=== PATIENT | male | born 1940 | race Caucasian/White ===

== ENCOUNTER → 2016-10-03 | Outpatient (CLI) | payer BC | END | disposition home or self-care (01) | LOC: RAD 07:50 | DX: R05 Cough (principal); R07.9 Chest pain, unspecified | CPT/HCPCS: 71020 ==

== ENCOUNTER → 2016-11-05 | Outpatient (CLI) | payer BC | END | disposition home or self-care (01) | LOC: US 06:51 | PROVIDERS: ATTEND Family Medicine | DX: N28.1 Cyst of kidney, acquired (principal); N40.0 Benign prostatic hyperplasia without lower urinary tract symptoms | CPT/HCPCS: 76770 ==

== ENCOUNTER → 2016-11-10 | Outpatient (CLI) | payer BC | END | disposition home or self-care (01) | LOC: LAB 16:29 | PROVIDERS: ATTEND Urology | DX: S37.009A Unspecified injury of unspecified kidney, initial encounter (principal); X58.XXXA Exposure to other specified factors, initial encounter; Y93.89 Activity, other specified; Y92.89 Other specified places as the place of occurrence of the external cause; Y99.8 Other external cause status | CPT/HCPCS: 36415; 82565; 84520 ==

== ENCOUNTER → 2016-11-12 | Outpatient (CLI) | payer BC ==
[~2016-11-12] MED LIST: ASPI-1159 PO; ATOR20TA65 PO; FINA5TAB11 PO; FURO40TA5 PO; IOHEXOL-300 100 ML BOTTLE ONE; LOSA25TA12 PO; LOSA50TA20 PO; OMEP40CA34 PO; SODIUM CHLORIDE 0.9% 10ML VIAL ONE; TAMS0.4C31 PO
== END | disposition home or self-care (01) ==
LOC: CT 06:48
PROVIDERS: ATTEND Urology
DX: S37.002A Unspecified injury of left kidney, initial encounter (principal); K76.89 Other specified diseases of liver; N28.1 Cyst of kidney, acquired; K57.90 Diverticulosis of intestine, part unspecified, without perforation or abscess without bleeding; X58.XXXA Exposure to other specified factors, initial encounter; Y93.89 Activity, other specified; Y92.89 Other specified places as the place of occurrence of the external cause; Y99.8 Other external cause status
CPT/HCPCS: 74178; A4216; Q9967

== ENCOUNTER → 2017-01-14 | Outpatient (CLI) | payer BC ==
[~2017-01-14] MED LIST changes: -IOHEXOL-300 100 ML BOTTLE ONE; -SODIUM CHLORIDE 0.9% 10ML VIAL ONE
== END | disposition home or self-care (01) ==
LOC: US 07:26
PROVIDERS: ATTEND Family Medicine
DX: R16.0 Hepatomegaly, not elsewhere classified (principal); N28.1 Cyst of kidney, acquired
CPT/HCPCS: 76700

== ENCOUNTER 2017-02-25 05:33 | Day surgery (SDC) | payer BC, MEDICARE ==
[~2017-02-25] VITALS: Ht 167.6 cm; Wt 82.6 kg
[2017-02-25] MEDS ORDERED: PHENYLEPHRINE HCL 10% OPHTH DROPS 5ML LEFTEYE SCH (06:05)
[2017-02-25] MEDS ORDERED: TROPICAMIDE 1% OPHTH DROPS 15ML LEFTEYE SCH (06:05)
[2017-02-25] MEDS: CYCLOPENTOLATE HCL 1% OPHTH DROPS 2ML LEFTEYE SCH ×2 (06:10→08:39)
[2017-02-25] MEDS ORDERED: LACTATED RINGERS 1,000 ML IV SCH (06:35)
[2017-02-25] MEDS ORDERED: BALANCED SALT IRRIG SOLN COMB1 500ML OP ONE (06:45)
[2017-02-25] MEDS ORDERED: MIDAZOLAM HCL 2 MG/2 ML VIAL ONE ×2 (07:35→08:10)
[2017-02-25] MEDS ORDERED: FENTANYL CITRATE/PF 50MCG/ML 2ML VIAL ONE (07:36)
[2017-02-25] MEDS ORDERED: HYALURONATE SODIUM 14 MG/ML 0.85ML SYRINGE IO ONE (08:05)
[2017-02-25] MEDS ORDERED: PROPOFOL 200MG/20ML VIAL IV ONE (08:20)
[2017-02-25] MEDS ORDERED: ONDANSETRON HCL 4MG/2ML VIAL IV PRN (08:45)
[2017-02-25] MEDS: FENTANYL CITRATE/PF 50MCG/ML 2ML VIAL IV PRN ×2 (09:07→09:23)
[2017-02-25 09:23] VITALS: BP 109/68
[2017-02-25] MEDS ORDERED: LOSA50TA20 PO (09:29)
[2017-02-25] MEDS ORDERED: FURO40TA5 PO (09:29)
[2017-02-25] MEDS ORDERED: LOSA25TA12 PO (09:29)
[2017-02-25] MEDS ORDERED: TAMS0.4C31 PO (09:29)
[2017-02-25] MEDS ORDERED: OMEP40CA34 PO (09:29)
[2017-02-25] MEDS ORDERED: ASPI-1159 PO (09:29)
[2017-02-25] MEDS ORDERED: ATOR20TA65 PO (09:29)
[2017-02-25] MEDS ORDERED: FINA5TAB11 PO (09:29)
[2017-02-25] MEDS ORDERED: TETRACAINE 0.5% OPHTH DROPS 4ML ONE (11:50)
[2017-02-25] MEDS ORDERED: PREDNISOLONE ACETATE 1% OPHTH DROPS 1ML ONE (11:50)
[2017-02-25] MEDS ORDERED: LIDOCAINE HCL/PF 2% 20 MG/ML 10ML VIAL ONE (11:50)
[2017-02-25] MEDS ORDERED: ACETYLCHOLINE CHLORIDE INTRAOCULAR SOLUTION 1:100 ELECTROLYTE DILUENT IO ONE (11:50)
[2017-02-25] MEDS ORDERED: BALANCED SALT IRRIG SOLN 15ML ONE (11:50)
[2017-02-25] MEDS ORDERED: CIPROFLOXACIN 0.3% OPHTH SOLN 2.5ML ONE (11:50)
[2017-02-25] MEDS ORDERED: NEO/POLYMYX B SULF/DEXAMETH OPHTH OINT 3.5GM ONE (11:50)
== END 2017-02-25 10:20 ==
LOC: OR 05:33
PROVIDERS: ATTEND Ophthalmology
DX: H25.89 Other age-related cataract (principal); I10 Essential (primary) hypertension; K21.9 Gastro-esophageal reflux disease without esophagitis; N40.0 Benign prostatic hyperplasia without lower urinary tract symptoms; B19.20 Unspecified viral hepatitis C without hepatic coma; E78.00 Pure hypercholesterolemia, unspecified; Z98.890 Other specified postprocedural states; Z79.899 Other long term (current) drug therapy
CPT/HCPCS: 66984; J2250; J3010; J3490; J7120; V2632; J2704

== ENCOUNTER → 2017-03-23 | Outpatient (CLI) | payer BC | END | disposition home or self-care (01) | LOC: MRI 07:05 | PROVIDERS: ATTEND Psychiatry & Neurology Neurology | DX: I67.9 Cerebrovascular disease, unspecified (principal) | CPT/HCPCS: 70544 ==

== ENCOUNTER → 2017-04-19 | Outpatient (CLI) | payer BC ==
[~2017-04-19] MED LIST changes: +PHEN30CA3 PO
[2017-04-19 12:19] LABS: BASOPHILS % 0.7 % (0.0-2.0); EOSINOPHILS % 2.7 % (0.0-5.0); HEMATOCRIT. 40.5 % (42.0-52.0); HEMOGLOBIN. 13.6 g/dL (14.0-18.0); MEAN CORPUSCULAR HEMOGLOBIN 29.5 pg (28.0-32.0); MEAN CORPUSCULAR VOLUME 87.7 fL (80.0-94.0); MEAN PLATELET VOLUME 7.9 fl (7.4-10.4); MONOCYTES % 12.1 % (2.0-8.0); NEUTROPHILS % 39.5 % (40.0-76.0); PLATELET 262 x1000/uL (130-400); RED BLOOD CELL COUNT 4.62 mill/uL (4.7-6.1); RED CELL DISTRIBUTION WIDTH 12.8 % (11.6-14.6)
[2017-04-19 12:43] LABS: CHLORIDE 107 mEq/L (98-107)
== END | disposition home or self-care (01) ==
LOC: LAB 11:42
PROVIDERS: ATTEND Internal Medicine Gastroenterology
DX: N28.1 Cyst of kidney, acquired (principal); R16.0 Hepatomegaly, not elsewhere classified
CPT/HCPCS: 36415; 80053; 82105; 85025

== ENCOUNTER → 2017-04-26 | Outpatient (CLI) | payer BC ==
[~2017-04-26] MED LIST changes: -PHEN30CA3 PO
== END | disposition home or self-care (01) ==
LOC: US 07:14
PROVIDERS: ATTEND Internal Medicine Gastroenterology
DX: N28.1 Cyst of kidney, acquired (principal); R16.0 Hepatomegaly, not elsewhere classified
CPT/HCPCS: 76700

== ENCOUNTER → 2017-05-10 | Outpatient (CLI) | payer BC | END | disposition home or self-care (01) | LOC: CARD 07:13 | PROVIDERS: ATTEND Psychiatry & Neurology Neurology | DX: I67.9 Cerebrovascular disease, unspecified (principal) | CPT/HCPCS: 93306 ==

== ENCOUNTER → 2017-05-27 | Day surgery (SDC) | payer BC ==
[~2017-05-27] VITALS: Ht 167.6 cm; Wt 74.8 kg
[~2017-05-27] MED LIST changes: +ACETYLCHOLINE CHLORIDE INTRAOCULAR SOLUTION 1:100 ELECTROLYTE DILUENT IO ONE; +BALANCED SALT IRRIG SOLN 15ML ONE; +BALANCED SALT IRRIG SOLN COMB2 500ML OP ONE; +BUPIVACAINE HCL/PF 0.75% (7.5MG/ML) 10ML ONE; +CIPROFLOXACIN 0.3% OPHTH SOLN 2.5ML ONE; +CYCLOPENTOLATE HCL 1% OPHTH DROPS 2ML LEFTEYE ONE; +CYCLOPENTOLATE HCL 1% OPHTH DROPS 2ML ONE; +HYALURONATE SODIUM 14 MG/ML 0.85ML SYRINGE IO ONE; +LIDOCAINE HCL 2%/EPINEPHRINE 1:100,000 20 ML VIAL INFIL ONE; +LIDOCAINE HCL/PF 2% 20 MG/ML 10ML VIAL ONE; +MORPHINE SULFATE 2 MG/ML CPJ (NOT FOR IM USE) IV PRN; +NEO/POLYMYX B SULF/DEXAMETH OPHTH OINT 3.5GM ONE; +PHEN30CA3 PO; +PHENYLEPHRINE HCL 10% OPHTH DROPS 5ML LEFTEYE ONE; +PREDNISOLONE ACETATE 1% OPHTH DROPS 1ML ONE; +TETRACAINE 0.5% OPHTH DROPS 4ML ONE; +TROPICAMIDE 1% OPHTH DROPS 15ML LEFTEYE ONE; +TROPICAMIDE 1% OPHTH DROPS 15ML ONE
[2017-05-27 11:34] LABS: BASOPHILS % 0.6 % (0.0-2.0); EOSINOPHILS % 2.4 % (0.0-5.0); HEMATOCRIT. 37.7 % (42.0-52.0); HEMOGLOBIN. 12.6 g/dL (14.0-18.0); LYMPHOCYTES % 42.9 % (20.0-50.0); MEAN CORPUSCULAR VOLUME 86.9 fL (80.0-94.0); MEAN PLATELET VOLUME 7.5 fl (7.4-10.4); MONOCYTES % 9.5 % (2.0-8.0); NEUTROPHILS % 44.6 % (40.0-76.0); PLATELET 262 x1000/uL (130-400); RED BLOOD CELL COUNT 4.34 mill/uL (4.7-6.1); RED CELL DISTRIBUTION WIDTH 13.2 % (11.6-14.6)
[2017-05-27 11:45] LABS: CARBON DIOXIDE 23 mEq/L (21-32); CHLORIDE 110 mEq/L (98-107)
[2017-05-27] MEDS: LACTATED RINGERS 1,000 ML IV SCH ×2 (12:00→13:56)
== END | disposition home or self-care (01) ==
LOC: OR 10:24
PROVIDERS: ATTEND Ophthalmology
DX: H52.31 Anisometropia (principal); B19.20 Unspecified viral hepatitis C without hepatic coma; K21.9 Gastro-esophageal reflux disease without esophagitis; Z87.891 Personal history of nicotine dependence; E78.00 Pure hypercholesterolemia, unspecified; N40.0 Benign prostatic hyperplasia without lower urinary tract symptoms; Z79.899 Other long term (current) drug therapy; Z79.82 Long term (current) use of aspirin; Z98.890 Other specified postprocedural states
CPT/HCPCS: 36415; 66986; 67010; 80048; 85025; 93005; J3490; J7120; V2630

== ENCOUNTER → 2017-06-13 | Outpatient (CLI) | payer BC ==
[~2017-06-13] MED LIST changes: -ACETYLCHOLINE CHLORIDE INTRAOCULAR SOLUTION 1:100 ELECTROLYTE DILUENT IO ONE; -BALANCED SALT IRRIG SOLN 15ML ONE; -BALANCED SALT IRRIG SOLN COMB2 500ML OP ONE; -BUPIVACAINE HCL/PF 0.75% (7.5MG/ML) 10ML ONE; -CIPROFLOXACIN 0.3% OPHTH SOLN 2.5ML ONE; +CLOP75TA33 PO; -CYCLOPENTOLATE HCL 1% OPHTH DROPS 2ML LEFTEYE ONE; -CYCLOPENTOLATE HCL 1% OPHTH DROPS 2ML ONE; -HYALURONATE SODIUM 14 MG/ML 0.85ML SYRINGE IO ONE; +HYDR-4009 PO; -LIDOCAINE HCL 2%/EPINEPHRINE 1:100,000 20 ML VIAL INFIL ONE; -LIDOCAINE HCL/PF 2% 20 MG/ML 10ML VIAL ONE; +METH-612 PO; -MORPHINE SULFATE 2 MG/ML CPJ (NOT FOR IM USE) IV PRN; -NEO/POLYMYX B SULF/DEXAMETH OPHTH OINT 3.5GM ONE; +NITR0.4T49 SL; +PHEN15CA MT; -PHENYLEPHRINE HCL 10% OPHTH DROPS 5ML LEFTEYE ONE; -PREDNISOLONE ACETATE 1% OPHTH DROPS 1ML ONE; -TETRACAINE 0.5% OPHTH DROPS 4ML ONE; -TROPICAMIDE 1% OPHTH DROPS 15ML LEFTEYE ONE; -TROPICAMIDE 1% OPHTH DROPS 15ML ONE
== END | disposition home or self-care (01) ==
LOC: LAB 09:11
PROVIDERS: ATTEND Internal Medicine Gastroenterology
DX: K76.89 Other specified diseases of liver (principal)
CPT/HCPCS: 36415; 82565; 84520

== ENCOUNTER → 2017-06-15 | Outpatient (CLI) | payer BC ==
[~2017-06-15] MED LIST changes: +BARIUM SULFATE 450ML ORAL SUSP ONE; -CLOP75TA33 PO; -HYDR-4009 PO; +IOHEXOL-300 100 ML BOTTLE ONE; -METH-612 PO; -NITR0.4T49 SL; -PHEN15CA MT
== END | disposition home or self-care (01) ==
LOC: CT 11:43
PROVIDERS: ATTEND Internal Medicine Gastroenterology
DX: K76.9 Liver disease, unspecified (principal)
CPT/HCPCS: 74177; Q9967

== ENCOUNTER → 2017-08-26 | Outpatient (CLI) | payer BC ==
[~2017-08-26] MED LIST changes: -BARIUM SULFATE 450ML ORAL SUSP ONE; -IOHEXOL-300 100 ML BOTTLE ONE
[2017-08-26 08:02] LABS: BASOPHILS % 0.6 % (0.0-2.0); EOSINOPHILS % 1.8 % (0.0-5.0); HEMATOCRIT. 42.2 % (42.0-52.0); HEMOGLOBIN. 14.1 g/dL (14.0-18.0); LYMPHOCYTES % 38.2 % (20.0-50.0); MEAN CORPUSCULAR HEMOGLOBIN 29.5 pg (28.0-32.0); MEAN CORPUSCULAR VOLUME 88.3 fL (80.0-94.0); MEAN PLATELET VOLUME 7.4 fl (7.4-10.4); MONOCYTES % 12.4 % (2.0-8.0); PLATELET 278 x1000/uL (130-400); RED BLOOD CELL COUNT 4.78 mill/uL (4.7-6.1); RED CELL DISTRIBUTION WIDTH 13.2 % (11.6-14.6)
[2017-08-26 08:23] LABS: CHLORIDE 109 mEq/L (98-107)
[2017-08-27 13:08] LABS: ALPHA FETOPROTEIN TUMOR MARKER 4.5 ng/mL (0.0-8.3)
== END | disposition home or self-care (01) ==
LOC: LAB 07:26
PROVIDERS: ATTEND Internal Medicine Gastroenterology
DX: K76.9 Liver disease, unspecified (principal); I10 Essential (primary) hypertension; E78.00 Pure hypercholesterolemia, unspecified; K21.9 Gastro-esophageal reflux disease without esophagitis; R79.89 Other specified abnormal findings of blood chemistry; Z79.899 Other long term (current) drug therapy; Z79.82 Long term (current) use of aspirin; Z87.891 Personal history of nicotine dependence
CPT/HCPCS: 36415; 80053; 82105; 82378; 85025; 86301

== ENCOUNTER 2018-01-31 06:52 | Day surgery (SDC) | payer BC ==
[~2018-01-31] VITALS: Ht 167.6 cm; Wt 72.6 kg
[2018-01-31] MEDS ORDERED: PHENYLEPHRINE HCL 10% OPHTH DROPS 5ML RIGHTEYE SCH (08:40)
[2018-01-31] MEDS ORDERED: CYCLOPENTOLATE HCL 1% OPHTH DROPS 2ML RIGHTEYE SCH (08:40)
[2018-01-31] MEDS ORDERED: TROPICAMIDE 1% OPHTH DROPS 15ML RIGHTEYE SCH (08:40)
[2018-01-31] MEDS ORDERED: LACTATED RINGERS 1,000 ML IV SCH (09:00)
[2018-01-31] MEDS ORDERED: BALANCED SALT IRRIG SOLN COMB1 500ML OP ONE (10:00)
[2018-01-31] MEDS ORDERED: HYALURONATE SODIUM 14 MG/ML 0.85ML SYRINGE IO ONE (11:14)
[2018-01-31] MEDS ORDERED: BALANCED SALT IRRIG SOLN 15ML ONE (11:19)
[2018-01-31] MEDS ORDERED: PHENYLEPHRINE HCL 10% OPHTH DROPS 5ML ONE (11:19)
[2018-01-31] MEDS ORDERED: LIDOCAINE HCL/PF 2% 20 MG/ML 10ML VIAL ONE (11:19)
[2018-01-31] MEDS ORDERED: BUPIVACAINE HCL/PF 0.75% (7.5MG/ML) 10ML ONE (11:19)
[2018-01-31] MEDS ORDERED: NEO/POLYMYX B SULF/DEXAMETH OPHTH OINT 3.5GM ONE (11:19)
[2018-01-31] MEDS ORDERED: OFLOXACIN 0.3% OPHTH SOLN 5ML ONE (11:19)
[2018-01-31] MEDS ORDERED: CYCLOPENTOLATE HCL 1% OPHTH DROPS 2ML ONE (11:19)
[2018-01-31] MEDS ORDERED: PREDNISOLONE ACETATE 1% OPHTH DROPS 1ML ONE (11:19)
[2018-01-31] MEDS ORDERED: TETRACAINE 0.5% OPHTH DROPS 4ML ONE (11:19)
[2018-01-31] MEDS ORDERED: TROPICAMIDE 1% OPHTH DROPS 15ML ONE (11:19)
[2018-01-31] MEDS ORDERED: LIDOCAINE HCL 2%/EPINEPHRINE 1:100,000 20 ML VIAL INFIL ONE (11:19)
[2018-01-31] MEDS ORDERED: PROPOFOL 200MG/20ML VIAL IV ONE (12:40)
[2018-01-31] MEDS ORDERED: FENTANYL CITRATE/PF 50MCG/ML 2ML VIAL ONE (12:40)
[2018-01-31] MEDS ORDERED: MIDAZOLAM HCL 2 MG/2 ML VIAL ONE (12:40)
[2018-01-31] MEDS ORDERED: MEPERIDINE HCL/PF 25MG/ML CPJ IV PRN (12:45)
[2018-01-31] MEDS ORDERED: LABETALOL 5MG/ML SYR 20 MG/4 ML SYRINGE IV PRN (12:45)
[2018-01-31] MEDS ORDERED: HYDROMORPHONE HCL/PF 2MG/ML CPJ IV PRN (12:45)
[2018-01-31] MEDS ORDERED: ONDANSETRON HCL 4MG/2ML INJ IV PRN (12:45)
[2018-01-31] MEDS ORDERED: DEXAMETHASONE 4MG/ML 1ML VIAL ONE (12:54)
== END 2018-01-31 14:05 | disposition home or self-care (01) ==
LOC: OR 06:52
PROVIDERS: ATTEND Ophthalmology
DX: H25.011 Cortical age-related cataract, right eye (principal); N40.0 Benign prostatic hyperplasia without lower urinary tract symptoms; I10 Essential (primary) hypertension; E78.00 Pure hypercholesterolemia, unspecified; G89.29 Other chronic pain; B19.20 Unspecified viral hepatitis C without hepatic coma; K21.9 Gastro-esophageal reflux disease without esophagitis; Z98.890 Other specified postprocedural states; Z90.81 Acquired absence of spleen; Z79.899 Other long term (current) drug therapy; Z79.82 Long term (current) use of aspirin; Z87.891 Personal history of nicotine dependence
CPT/HCPCS: 66984; J1100; J2250; J2405; J3010; J3490; J7120; V2632; J2704

== ENCOUNTER → 2018-02-17 | Outpatient (CLI) | payer BC | END | disposition home or self-care (01) | LOC: RAD 07:43 | PROVIDERS: ATTEND Podiatrist Foot & Ankle Surgery | DX: M72.2 Plantar fascial fibromatosis (principal) | CPT/HCPCS: 73630 ==

== ENCOUNTER → 2018-03-22 | Outpatient (CLI) | payer BC ==
[2018-03-22 10:41] LABS: BASOPHILS % 0.5 % (0.0-2.0); HEMATOCRIT. 39.7 % (42.0-52.0); HEMOGLOBIN. 13.7 g/dL (14.0-18.0); LYMPHOCYTES % 29.3 % (20.0-50.0); MEAN CORPUSCULAR HEMOGLOBIN 30.7 pg (28.0-32.0); MEAN CORPUSCULAR VOLUME 88.9 fL (80.0-94.0); MEAN PLATELET VOLUME 7.5 fl (7.4-10.4); MONOCYTES % 10.1 % (2.0-8.0); NEUTROPHILS % 59.1 % (40.0-76.0); PLATELET 328 x1000/uL (130-400); RED BLOOD CELL COUNT 4.47 mill/uL (4.7-6.1); RED CELL DISTRIBUTION WIDTH 12.9 % (11.6-14.6)
[2018-03-22 12:25] LABS: CHLORIDE 106 mEq/L (98-107)
[2018-03-22 12:38] LABS: LDL CHOLESTEROL 76 mg/dL (5-100); T4 FREE 1.08 ng/dL (0.76-1.46)
[2018-03-22 12:39] LABS: HDL CHOLESTEROL 62 mg/dL (40-59)
== END | disposition home or self-care (01) ==
LOC: LAB 09:37
PROVIDERS: ATTEND Specialist
DX: I11.9 Hypertensive heart disease without heart failure (principal); R94.31 Abnormal electrocardiogram [ECG] [EKG]; I42.8 Other cardiomyopathies; I44.7 Left bundle-branch block, unspecified
CPT/HCPCS: 36415; 80061; 84439; 84443; 84481

== ENCOUNTER 2018-03-28 06:39 | Day surgery (SDC) | payer BC ==
[2018-03-28] MEDS ORDERED: LIDOCAINE HCL 1% 20ML VIAL (Pyxis) INJ ONE (07:38)
[2018-03-28] MEDS ORDERED: IODIXANOL 320MG/ML 100 ML BOTTLE IV ONE (07:38)
[2018-03-28] MEDS ORDERED: ASPIRIN/SOD BICARB/CITRIC ACID 324MG TAB EFF ONE (07:38)
[2018-03-28] MEDS ORDERED: MIDAZOLAM HCL 2 MG/2 ML VIAL ONE (08:14)
[2018-03-28] MEDS ORDERED: FENTANYL CITRATE/PF 50MCG/ML 2ML VIAL ONE (08:15)
[2018-03-28] MEDS ORDERED: IOHEXOL-300 100 ML BOTTLE ONE (08:58)
[2018-03-28] MEDS ORDERED: ATROPINE SULFATE 1MG/10ML SYR IV PRN (09:15)
[2018-03-28] MEDS ORDERED: ACETAMINOPHEN 325MG TABLET PO PRN (09:15)
[2018-03-28] MEDS ORDERED: ONDANSETRON HCL 4MG/2ML INJ IV PRN (09:15)
[2018-03-28] MEDS ORDERED: MORPHINE SULFATE 2 MG/ML CPJ (NOT FOR IM USE) IV PRN (09:15)
[2018-03-28] MEDS ORDERED: HEPARIN SODIUM 1,000 UNIT/1ML VIAL IV ONE (14:29)
[2018-03-28] MEDS ORDERED: NICARDIPINE 100MCG/ML 10ML VIAL (CATH LAB) IV ONE (15:25)
[2018-03-28] MEDS ORDERED: NITROGLYCERIN 50MCG/ML 10ML VIAL (CATH LAB) IV ONE (15:25)
== END 2018-03-28 14:05 | disposition home or self-care (01) ==
LOC: CCL 06:39
PROVIDERS: ATTEND Specialist
DX: I25.10 Atherosclerotic heart disease of native coronary artery without angina pectoris (principal); I11.9 Hypertensive heart disease without heart failure; I44.7 Left bundle-branch block, unspecified; N40.0 Benign prostatic hyperplasia without lower urinary tract symptoms; I42.9 Cardiomyopathy, unspecified; K21.9 Gastro-esophageal reflux disease without esophagitis; E78.00 Pure hypercholesterolemia, unspecified; Z79.899 Other long term (current) drug therapy; Z79.82 Long term (current) use of aspirin; Z87.891 Personal history of nicotine dependence; Z98.890 Other specified postprocedural states
CPT/HCPCS: 93458; 99152; 99153; C1769; C1887; J1644; J2250; J3010; J3490; Q9967; C1893; G0500

== ENCOUNTER 2018-04-21 06:55 | Inpatient (IN) | payer BC, MEDICARE ==
[~2018-04-21] VITALS: Ht 167.6 cm; Wt 76.7 kg
[2018-04-21] MEDS ORDERED: FENTANYL CITRATE/PF 50MCG/ML 2ML VIAL IV ONE ×2 (07:30→12:15)
[2018-04-21] MEDS ORDERED: ASPIRIN 81MG TABLET PO ONE (07:30)
[2018-04-21] MEDS ORDERED: ONDANSETRON HCL 4MG/2ML INJ IV ONE (07:30)
[2018-04-21 08:34] LABS: BASOPHILS % 0.6 % (0.0-2.0); EOSINOPHILS % 1.9 % (0.0-5.0); HEMATOCRIT. 38.1 % (42.0-52.0); HEMOGLOBIN. 12.8 g/dL (14.0-18.0); LYMPHOCYTES % 27.2 % (20.0-50.0); MEAN CORPUSCULAR VOLUME 89.6 fL (80.0-94.0); MEAN PLATELET VOLUME 7.7 fl (7.4-10.4); MONOCYTES % 10.9 % (2.0-8.0); NEUTROPHILS % 59.4 % (40.0-76.0); PLATELET 360 x1000/uL (130-400); RED BLOOD CELL COUNT 4.25 mill/uL (4.7-6.1); RED CELL DISTRIBUTION WIDTH 12.9 % (11.6-14.6)
[2018-04-21 08:41] LABS: CHLORIDE 104 mEq/L (98-107)
[2018-04-21 08:45] LABS: INR 1.1; PARTIAL THROMBOPLASTIN TIME 28.9 sec (23.4-31.0)
[2018-04-21] MEDS ORDERED: FUROSEMIDE 20MG/2ML VIAL IVP ONE (09:15)
[2018-04-21 09:24] LABS: CLARITY URINE CLEAR (CLEAR); COLOR URINE YELLOW (YELLOW); KETONES URINE NEGATIVE (NEGATIVE); LEUKOCYTE ESTERASE URINE NEGATIVE (NEGATIVE); NITRITE URINE NEGATIVE (NEGATIVE); OCCULT BLOOD URINE NEGATIVE (NEGATIVE); PROTEIN URINE NEGATIVE (NEGATIVE); SPECIFIC GRAVITY URINE 1.007 (1.005-1.030); UROBILINOGEN URINE 0.2 E.U./dL (0.2-1.0)
[2018-04-21] MEDS ORDERED: HYDR-4009 PO (11:45)
[2018-04-21] MEDS ORDERED: CLOP75TA33 PO (11:45)
[2018-04-21] MEDS ORDERED: METH-612 PO (11:45)
[2018-04-21] MEDS ORDERED: NITR0.4T49 SL (11:45)
[2018-04-21 12:00] VITALS: BP 149/85
[2018-04-21 13:00] VITALS: BP 149/83
[2018-04-21] MEDS: NITROGLYCERIN OINT 1GM/INCH UDPKT TD SCH ×2 (13:00→18:00)
[2018-04-21] MEDS: LOSARTAN POTASSIUM 25 MG TABLET PO SCH ×2 (14:05→21:06)
[2018-04-21] MEDS: MORPHINE SULFATE 10 MG/ML CPJ IV PRN ×2 (15:14→21:06)
[2018-04-21 16:00] VITALS: BP 119/63
[2018-04-21] MEDS ORDERED: CLONIDINE 0.1MG TABLET PO PRN (16:00)
[2018-04-21] MEDS ORDERED: ONDANSETRON HCL 4MG/2ML INJ IV PRN (16:00)
[2018-04-21] MEDS ORDERED: GUAIFENESIN 200MG/10ML SUGAR FREE UDC PO PRN (16:00)
[2018-04-21] MEDS ORDERED: NITROGLYCERIN 0.4MG TABLET SL SL PRN (16:00)
[2018-04-21] MEDS ORDERED: IPRATROPIUM/ALBUTEROL 0.5-3(2.5)MG/3ML NEB INH PRN (16:00)
[2018-04-21] MEDS ORDERED: TRAMADOL 50MG TABLET PO PRN (16:00)
[2018-04-21] MEDS ORDERED: LORAZEPAM 1MG TABLET PO PRN (16:00)
[2018-04-21] MEDS ORDERED: NA PHOS,M-B/NA PHOS,DI-BA ENEMA 118ML PR PRN (16:00)
[2018-04-21] MEDS ORDERED: ZOLPIDEM TARTRATE 5MG TABLET PO PRN (16:00)
[2018-04-21] MEDS ORDERED: ACETAMINOPHEN 325MG TABLET PO PRN (16:00)
[2018-04-21] MEDS: HYDROCODONE/ACETAMINOPHEN 5/325MG TABLET PO PRN (16:56)
[2018-04-21] MEDS: ENOXAPARIN 40MG/0.4ML SYR SUBCUT SCH (16:57)
[2018-04-21 20:00] VITALS: BP 139/72
[2018-04-21] MEDS: TAMSULOSIN HCL 0.4MG SR CAPSULE PO SCH (21:05)
[2018-04-21] MEDS: ATORVASTATIN CALCIUM 20MG TABLET PO SCH (21:06)
[2018-04-21] MEDS: FAMOTIDINE 20MG TABLET PO SCH (21:09)
[2018-04-22] VITALS (7 sets, daily range): BP systolic 111–154; BP diastolic 63–79
[2018-04-22] MEDS: MORPHINE SULFATE 10 MG/ML CPJ IV PRN ×4 (01:48→16:25)
[2018-04-22] MEDS: NITROGLYCERIN OINT 1GM/INCH UDPKT TD SCH ×4 (05:46→18:23)
[2018-04-22 06:40] LABS: BASOPHILS % 0.4 % (0.0-2.0); EOSINOPHILS % 2.8 % (0.0-5.0); HEMATOCRIT. 36.5 % (42.0-52.0); HEMOGLOBIN. 12.4 g/dL (14.0-18.0); LYMPHOCYTES % 34.2 % (20.0-50.0); MEAN CORPUSCULAR VOLUME 88.6 fL (80.0-94.0); MONOCYTES % 13.6 % (2.0-8.0); PLATELET 351 x1000/uL (130-400); RED BLOOD CELL COUNT 4.12 mill/uL (4.7-6.1); RED CELL DISTRIBUTION WIDTH 12.7 % (11.6-14.6)
[2018-04-22 06:46] LABS: CHLORIDE 102 mEq/L (98-107)
[2018-04-22 07:09] LABS: LDL CHOLESTEROL 59 mg/dL (5-100)
[2018-04-22 07:10] LABS: CREATINE KINASE 89 IU/L (39-308)
[2018-04-22 07:11] LABS: CREATINE KINASE MB FRACTION < 1.0 ng/mL (0.5-3.6); HDL CHOLESTEROL 50 mg/dL (40-59)
[2018-04-22] MEDS ORDERED: CLOPIDOGREL 75MG TABLET PO SCH (09:00)
[2018-04-22] MEDS ORDERED: ASPIRIN 325MG EC TABLET PO SCH (09:00)
[2018-04-22] MEDS: TAMSULOSIN HCL 0.4MG SR CAPSULE PO SCH ×2 (09:10→20:48)
[2018-04-22] MEDS: FAMOTIDINE 20MG TABLET PO SCH ×2 (09:10→20:48)
[2018-04-22] MEDS: LOSARTAN POTASSIUM 25 MG TABLET PO SCH ×2 (09:10→21:00)
[2018-04-22] MEDS: DUTASTERIDE 0.5MG CAPSULE PO SCH (09:10)
[2018-04-22] MEDS ORDERED: GADOBENATE DIMEGLUMINE 529 MG/ML 10ML IV ONE (14:08)
[2018-04-22] MEDS: MAGNESIUM HYDROXIDE 400MG/5ML 30ML UDC PO PRN (16:15)
[2018-04-22] MEDS ORDERED: NITROGLYCERIN 0.4MG TABLET SL SL PRN (16:15)
[2018-04-22] MEDS ORDERED: ALPRAZOLAM 0.25 MG TABLET PO PRN (16:15)
[2018-04-22] MEDS: DOCUSATE SODIUM 100MG CAPSULE PO PRN ×2 (16:15→20:47)
[2018-04-22] MEDS ORDERED: ACETAMINOPHEN 325MG TABLET PO PRN (16:15)
[2018-04-22] MEDS: ENOXAPARIN 40MG/0.4ML SYR SUBCUT SCH (16:15)
[2018-04-22] MEDS: HYDROCODONE/ACETAMINOPHEN 5/325MG TABLET PO PRN ×2 (18:32→22:29)
[2018-04-22] MEDS: ATORVASTATIN CALCIUM 20MG TABLET PO SCH (20:48)
[2018-04-22] MEDS: LIDOCAINE 5% PATCH TOP SCH (20:52)
[2018-04-22] MEDS: CYCLOBENZAPRINE 10MG TABLET PO SCH (22:18)
[2018-04-22] MEDS: SODIUM CHLORIDE 0.9% INJ 3ML FLUSH IVF SCH (22:18)
[2018-04-23] VITALS (11 sets, daily range): BP systolic 98–138; BP diastolic 44–77
[2018-04-23] MEDS: MORPHINE SULFATE 10 MG/ML CPJ IV PRN ×3 (05:27→17:48)
[2018-04-23] MEDS: SODIUM CHLORIDE 0.9% INJ 3ML FLUSH IVF SCH ×3 (05:30→22:00)
[2018-04-23] MEDS: CYCLOBENZAPRINE 10MG TABLET PO SCH ×3 (05:30→21:59)
[2018-04-23] MEDS: NITROGLYCERIN OINT 1GM/INCH UDPKT TD SCH ×4 (05:31→17:47)
[2018-04-23 06:44] LABS: CLARITY URINE CLEAR (CLEAR); COLOR URINE YELLOW (YELLOW); KETONES URINE NEGATIVE (NEGATIVE); LEUKOCYTE ESTERASE URINE NEGATIVE (NEGATIVE); NITRITE URINE NEGATIVE (NEGATIVE); OCCULT BLOOD URINE NEGATIVE (NEGATIVE); PH URINE 5.5 (4.5-8.0); PROTEIN URINE NEGATIVE (NEGATIVE); SPECIFIC GRAVITY URINE 1.026 (1.005-1.030)
[2018-04-23] MEDS: FAMOTIDINE 20MG TABLET PO SCH ×2 (08:48→20:33)
[2018-04-23] MEDS: DUTASTERIDE 0.5MG CAPSULE PO SCH (08:48)
[2018-04-23] MEDS: TAMSULOSIN HCL 0.4MG SR CAPSULE PO SCH ×2 (08:49→20:33)
[2018-04-23] MEDS: LOSARTAN POTASSIUM 25 MG TABLET PO SCH ×2 (08:50→20:32)
[2018-04-23] MEDS: ENOXAPARIN 40MG/0.4ML SYR SUBCUT SCH (16:01)
[2018-04-23] MEDS: ATORVASTATIN CALCIUM 20MG TABLET PO SCH (20:33)
[2018-04-23] MEDS: ALLOPURINOL 300 MG TABLET PO SCH (20:34)
[2018-04-23] MEDS: LIDOCAINE 5% PATCH TOP SCH (21:00)
[2018-04-23] MEDS ORDERED: CHLORHEXIDINE GLUCONATE 4% EXTERNAL USE TOP SCH (21:00)
[2018-04-23] MEDS ORDERED: DOCUSATE SODIUM 100MG CAPSULE PO SCH (21:00)
[2018-04-23] MEDS ORDERED: BISACODYL 10MG SUPP PR PRN (21:00)
[2018-04-23] MEDS ORDERED: ASCORBIC ACID 500 MG TABLET PO SCH (21:00)
[2018-04-24] VITALS (30 sets, daily range): BP systolic 102–156; BP diastolic 36–77
[2018-04-24] MEDS: NITROGLYCERIN OINT 1GM/INCH UDPKT TD SCH ×2 (00:02→04:49)
[2018-04-24] MEDS: MORPHINE SULFATE 10 MG/ML CPJ IV PRN ×2 (02:58→20:35)
[2018-04-24] MEDS ORDERED: CEFAZOLIN 2,000 MG in DEXT 5% WATER 100 ML IV PRN (04:00)
[2018-04-24] MEDS ORDERED: BLOOD SUGAR DIAGNOSTIC STRIP TEST SCH (04:00)
[2018-04-24] MEDS: SODIUM CHLORIDE 0.9% INJ 3ML FLUSH IVF SCH ×3 (04:40→20:39)
[2018-04-24] MEDS: ALLOPURINOL 300 MG TABLET PO SCH (04:40)
[2018-04-24] MEDS: CYCLOBENZAPRINE 10MG TABLET PO SCH (04:49)
[2018-04-24 05:15] LABS: BASOPHILS % 0.7 % (0.0-2.0); EOSINOPHILS % 1.3 % (0.0-5.0); HEMATOCRIT. 35.3 % (42.0-52.0); LYMPHOCYTES % 27.7 % (20.0-50.0); MEAN PLATELET VOLUME 7.2 fl (7.4-10.4); MONOCYTES % 14.6 % (2.0-8.0); NEUTROPHILS % 55.7 % (40.0-76.0); PLATELET 302 x1000/uL (130-400); RED BLOOD CELL COUNT 4.01 mill/uL (4.7-6.1); RED CELL DISTRIBUTION WIDTH 12.7 % (11.6-14.6)
[2018-04-24 05:23] LABS: CHLORIDE 102 mEq/L (98-107)
[2018-04-24 05:33] LABS: INR 1.1; PROTHROMBIN TIME 11.1 sec (9.1-11.1)
[2018-04-24] MEDS ORDERED: EPINEPHRINE 4 MG in DEXT 5% WATER 246 ML IV PRN (06:00)
[2018-04-24] MEDS ORDERED: AMINOCAPROIC ACID 10,000 MG in SODIUM CHLORIDE 0.9% 460 ML IV PRN (06:00)
[2018-04-24] MEDS ORDERED: INSULIN REGULAR (DRIP) 100 UNITS in SODIUM CHLORIDE 0.9% 99 ML IV PRN (06:00)
[2018-04-24] MEDS ORDERED: DOBUTAMINE HCL 250 MG in DEXT 5% WATER 230 ML IV PRN (06:00)
[2018-04-24] MEDS ORDERED: PAPAVERINE HCL 180MG in SODIUM CHLORIDE 0.9% 24ML IV PRN (06:00)
[2018-04-24] MEDS ORDERED: NOREPINEPHRINE 4 MG in DEXT 5% WATER 246 ML IV PRN (06:00)
[2018-04-24] MEDS ORDERED: DEL NIDO ELECTROLYTE-S(PH 7.4) 1,000 ML IV PRN ×2 (06:00)
[2018-04-24] MEDS ORDERED: NICARDIPINE 40MG/200ML PREMIX 200 ML IV PRN (06:00)
[2018-04-24] MEDS ORDERED: FENTANYL CITRATE/PF 50MCG/ML 5ML VIAL ONE (06:21)
[2018-04-24] MEDS ORDERED: ROCURONIUM BROMIDE 10MG/ML VIAL 5ML IV ONE ×2 (06:22→08:59)
[2018-04-24] MEDS ORDERED: MIDAZOLAM HCL 5 MG/ML VIAL ONE (06:22)
[2018-04-24] MEDS ORDERED: HEPARIN 1000 UNITS/ML 10ML ONE ×3 (06:25→08:59)
[2018-04-24] MEDS ORDERED: SUCCINYLCHOLINE CHLORIDE 200MG/10ML IV ONE ×3 (06:25→14:31)
[2018-04-24] MEDS ORDERED: METHYLENE BLUE 50 MG/10 ML AMP IV ONE (06:25)
[2018-04-24] MEDS ORDERED: THROMBIN (BOVINE) 5000 UNITS/VIAL TOP ONE (06:25)
[2018-04-24] MEDS ORDERED: ALBUMIN HUMAN 25GM/100ML (25%) IV ONE (06:26)
[2018-04-24] MEDS ORDERED: BACITRACIN 50,000 UNITS/VIAL ONE (06:30)
[2018-04-24] MEDS ORDERED: NORMAL SALINE 0.9% 10 ML SYR ONE (06:30)
[2018-04-24] MEDS ORDERED: MAGNESIUM SULFATE 5GM/10ML VIAL IV ONE (06:38)
[2018-04-24] MEDS ORDERED: POTASSIUM CHLORIDE 40MEQ/20ML INJ IV ONE ×2 (06:38→13:17)
[2018-04-24] MEDS ORDERED: AMINOCAPROIC ACID 250 MG/ML 20ML VIAL ONE (06:38)
[2018-04-24] MEDS ORDERED: AMIODARONE HCL 50MG/ML 3ML VIAL IV ONE (06:38)
[2018-04-24] MEDS ORDERED: MANNITOL 20% 500 ML IV ONE (06:39)
[2018-04-24] MEDS ORDERED: LIDOCAINE HCL 2% 5ML SYRINGE IV ONE ×2 (06:39→09:24)
[2018-04-24] MEDS ORDERED: CALCIUM CHLORIDE 1GM/10ML SYR IV ONE ×3 (06:39→12:02)
[2018-04-24] MEDS ORDERED: SODIUM BICARBONATE 8.4% 1 MEQ/ML 50ML SYR IV ONE ×4 (06:39→12:03)
[2018-04-24] MEDS ORDERED: HEPARIN 10,000 UNITS/ML VIAL ONE ×2 (06:40→08:59)
[2018-04-24] MEDS ORDERED: PHENYLEPHRINE HCL 10 MG/ML 1ML (IV VIAL) IV ONE ×2 (06:45→11:31)
[2018-04-24] MEDS ORDERED: ETOMIDATE 2MG/ML 10ML VIAL IV ONE ×2 (08:01→14:30)
[2018-04-24] MEDS ORDERED: PROTAMINE SULFATE 10MG/ML VIAL 25ML IV ONE (08:59)
[2018-04-24] MEDS ORDERED: NEOSTIGMINE METHYLSULFATE 1MG/ML 10 ML VIAL ONE (08:59)
[2018-04-24] MEDS ORDERED: METOCLOPRAMIDE HCL 10MG/2ML VIAL ONE (08:59)
[2018-04-24] MEDS ORDERED: METHYLPREDNISOLONE SOD SUCC 1000 MG/8 ML IV ONE (08:59)
[2018-04-24] MEDS ORDERED: ONDANSETRON HCL 4MG/2ML INJ ONE (08:59)
[2018-04-24] MEDS ORDERED: CHLORHEXIDINE GLUCONATE 4% EXTERNAL USE TOP SCH (09:00)
[2018-04-24] MEDS ORDERED: MILRINONE 20MG-DEXT 5% PREMIX 100 ML IV ONE (09:06)
[2018-04-24] MEDS ORDERED: VASOPRESSIN 20 UNIT/ML 1ML ONE ×3 (09:06→13:05)
[2018-04-24] MEDS ORDERED: MORPHINE SULFATE 10 MG/ML CPJ ONE (09:24)
[2018-04-24] MEDS ORDERED: GELATIN SPONGE,ABSORBABLE 12-7MM SPONGE ONE (10:14)
[2018-04-24] MEDS ORDERED: BACITRACIN 15GM TUBE TOP ONE (10:25)
[2018-04-24] MEDS ORDERED: FUROSEMIDE 100MG/10ML VIAL ONE (10:25)
[2018-04-24] MEDS ORDERED: HYDROCORTISONE SOD SUCCINATE 100 MG/2 ML VIAL IV SCH (11:00)
[2018-04-24] MEDS ORDERED: EPINEPHRINE 1:1000 1 MG/ML AMP ONE (11:39)
[2018-04-24] MEDS ORDERED: DEXTROSE 50% WATER 50ML SYRINGE IV ONE (12:03)
[2018-04-24] MEDS ORDERED: KCL 20MEQ/100ML PREMIX 200 ML IV ONE (13:14)
[2018-04-24] MEDS ORDERED: SODIUM CHLORIDE 0.9% 500 ML IV PRN (13:46)
[2018-04-24] MEDS ORDERED: NOREPINEPHRINE 4 MG in DEXT 5% WATER 250 ML IV SCH (13:46)
[2018-04-24] MEDS ORDERED: MILRINONE 20MG-DEXT 5% PREMIX 100 ML IV SCH (13:46)
[2018-04-24 13:58] LABS: BASOPHILS % 0.2 % (0.0-2.0); EOSINOPHILS % 0.1 % (0.0-5.0); HEMATOCRIT. 25.8 % (42.0-52.0); HEMOGLOBIN. 8.7 g/dL (14.0-18.0); LYMPHOCYTES % 20.3 % (20.0-50.0); MEAN CORPUSCULAR HEMOGLOBIN 30.3 pg (28.0-32.0); MEAN CORPUSCULAR VOLUME 89.9 fL (80.0-94.0); MEAN PLATELET VOLUME 7.7 fl (7.4-10.4); NEUTROPHILS % 70.4 % (40.0-76.0); PLATELET 159 x1000/uL (130-400); RED BLOOD CELL COUNT 2.86 mill/uL (4.7-6.1); RED CELL DISTRIBUTION WIDTH 12.7 % (11.6-14.6)
[2018-04-24] MEDS ORDERED: ALBUMIN HUMAN 12.5G/250ML (5%) IV PRN (14:00)
[2018-04-24] MEDS ORDERED: EPINEPHRINE 1 MG in DEXT 5% WATER 249 ML IV SCH (14:00)
[2018-04-24] MEDS ORDERED: MAGNESIUM 2 G PREMIX 50 ML IV PRN (14:00)
[2018-04-24] MEDS ORDERED: CALCIUM CHLORIDE 3,000 MG in DEXT 5% WATER 250 ML IV PRN (14:00)
[2018-04-24] MEDS ORDERED: ONDANSETRON HCL 4MG/2ML INJ IV PRN (14:00)
[2018-04-24] MEDS ORDERED: MORPHINE SULFATE 10 MG/ML CPJ IV PRN (14:00)
[2018-04-24] MEDS ORDERED: MAGNESIUM SULFATE 3 GM in DEXT 5% WATER 100 ML IV PRN (14:00)
[2018-04-24] MEDS ORDERED: ACETAMINOPHEN 325MG TABLET PO PRN (14:00)
[2018-04-24 14:08] LABS: CHLORIDE 111 mEq/L (98-107); INR 1.4; PARTIAL THROMBOPLASTIN TIME 33.4 sec (23.4-31.0)
[2018-04-24 14:09] LABS: PHOSPHORUS 3.8 mg/dL (2.5-4.9)
[2018-04-24] MEDS ORDERED: DEXT 5%/0.45% NACL 1000ML 1,000 ML IV SCH (14:30)
[2018-04-24] MEDS ORDERED: HYDROMORPHONE HCL/PF 2MG/ML CPJ ONE (14:48)
[2018-04-24 14:56] LABS: BG BASE EXCESS -7.2 mmol/L (-2.0-2.0); BG CARBOXYHEMOGLOBIN 0.3 % (0.5-1.5); BG DEOXYHEMOGLOBIN 3.7 % (0.0-5.0); BG FRACTION INSPIRED OXYGEN 70; BG HCO3 ACT 18.8 mmol/L (22.0-26.0); BG METHEMOGLOBIN 0.4 % (0.0-1.5); BG OXYGEN SATURATION 96.3 % (92.0-98.5); BG OXYHEMOGLOBIN 95.6 % (94.0-97.0); BG PCO2 39.7 mmHg (35.0-45.0); BG PH 7.293 (7.350-7.450); BG PO2 106.3 mmHg (75.0-100.0); BG SAMPLE SITE A-LINE; BG TOTAL HEMOGLOBIN 9.4 g/dL (12.0-18.0); BG VENT MODE MASK - BIPAP; BG VENT RATE 16 set
[2018-04-24] MEDS: IPRATROPIUM/ALBUTEROL 0.5-3(2.5)MG/3ML NEB HHN SCH ×4 (14:58→23:50)
[2018-04-24] MEDS: BLOOD SUGAR DIAGNOSTIC STRIP TEST SCH ×8 (15:00→23:11)
[2018-04-24] MEDS: MAGNESIUM HYDROXIDE 400MG/5ML 30ML UDC PO SCH ×3 (15:00→22:00)
[2018-04-24] MEDS ORDERED: SODIUM BICARBONATE 8.4% 1 MEQ/ML 50ML SYR IV NR ×3 (15:15→16:22)
[2018-04-24] MEDS ORDERED: HYDROMORPHONE HCL/PF 2MG/ML CPJ IV PRN (15:30)
[2018-04-24] MEDS ORDERED: HYDROMORPHONE HCL/PF 2MG/ML CPJ IV NR ×2 (15:30)
[2018-04-24] MEDS ORDERED: ALBUMIN HUMAN 12.5G/250ML (5%) IV NR ×2 (15:30)
[2018-04-24] MEDS ORDERED: DEXTROSE 50% WATER 50ML SYRINGE IV PRN ×2 (15:45)
[2018-04-24] MEDS ORDERED: KCL 10MEQ/50ML PREMIX 200 ML IV PRN (15:45)
[2018-04-24] MEDS ORDERED: KCL 10MEQ/50ML PREMIX 100 ML IV PRN (15:45)
[2018-04-24] MEDS ORDERED: KCL 10MEQ/50ML PREMIX 150 ML IV PRN (15:45)
[2018-04-24] MEDS ORDERED: EPINEPHRINE 1 MG in SODIUM CHLORIDE 0.9% 249 ML IV PRN (15:45)
[2018-04-24] MEDS ORDERED: ALBUMIN HUMAN 25GM/500ML (5%) IV NR (16:00)
[2018-04-24 16:03] LABS: BG BASE EXCESS -3.6 mmol/L (-2.0-2.0); BG CARBOXYHEMOGLOBIN 0.5 % (0.5-1.5); BG DEOXYHEMOGLOBIN 10.5 % (0.0-5.0); BG FRACTION INSPIRED OXYGEN 35; BG HCO3 ACT 22.1 mmol/L (22.0-26.0); BG METHEMOGLOBIN 0.6 % (0.0-1.5); BG OXYGEN SATURATION 89.4 % (92.0-98.5); BG OXYHEMOGLOBIN 88.4 % (94.0-97.0); BG PCO2 42.4 mmHg (35.0-45.0); BG PH 7.334 (7.350-7.450); BG PO2 63.1 mmHg (75.0-100.0); BG SAMPLE SITE A-LINE; BG TOTAL HEMOGLOBIN 8.8 g/dL (12.0-18.0); BG VENT MODE MASK - BIPAP
[2018-04-24] MEDS ORDERED: ALBUMIN HUMAN 12.5G/250ML (5%) IV ONE (16:20)
[2018-04-24] MEDS ORDERED: POTASSIUM CHLORIDE 10MEQ IN WATER 50ML PREMIX IV ONE (16:20)
[2018-04-24] MEDS ORDERED: MAGNESIUM SULFATE 1G IN DEXT 5% 100ML PREMIX IV ONE (16:20)
[2018-04-24] MEDS: CEFAZOLIN 1000MG PREMIX 50 ML IV SCH ×2 (16:34→21:38)
[2018-04-24] MEDS: INSULIN REGULAR (DRIP) 100 UNITS in SODIUM CHLORIDE 0.9% 99 ML IV SCH (16:36)
[2018-04-24] MEDS ORDERED: EPINEPHRINE 4 MG in SODIUM CHLORIDE 0.9% 246 ML IV PRN (16:45)
[2018-04-24] MEDS ORDERED: NALOXONE HCL 0.4 MG/ML 1ML VIAL IV NR (17:00)
[2018-04-24] MEDS: DOCUSATE SODIUM 100MG CAPSULE PO SCH (17:00)
[2018-04-24] MEDS: NOREPINEPHRINE 4 MG in DEXT 5% WATER 246 ML IV SCH (17:02)
[2018-04-24 17:03] LABS: BG BASE EXCESS -3.4 mmol/L (-2.0-2.0); BG CARBOXYHEMOGLOBIN 0.3 % (0.5-1.5); BG DEOXYHEMOGLOBIN 3.5 % (0.0-5.0); BG FRACTION INSPIRED OXYGEN 50; BG HCO3 ACT 21.8 mmol/L (22.0-26.0); BG METHEMOGLOBIN 0.6 % (0.0-1.5); BG OXYGEN SATURATION 96.5 % (92.0-98.5); BG OXYHEMOGLOBIN 95.6 % (94.0-97.0); BG PCO2 39.6 mmHg (35.0-45.0); BG PH 7.358 (7.350-7.450); BG PO2 104.6 mmHg (75.0-100.0); BG SAMPLE SITE A-LINE; BG TOTAL HEMOGLOBIN 8.7 g/dL (12.0-18.0); BG VENT MODE MASK - BIPAP
[2018-04-24 21:13] LABS: BG BASE EXCESS -0.3 mmol/L (-2.0-2.0); BG CARBOXYHEMOGLOBIN 0.4 % (0.5-1.5); BG DEOXYHEMOGLOBIN 1.6 % (0.0-5.0); BG FRACTION INSPIRED OXYGEN 50; BG HCO3 ACT 23.7 mmol/L (22.0-26.0); BG METHEMOGLOBIN 0.6 % (0.0-1.5); BG OXYGEN SATURATION 98.4 % (92.0-98.5); BG OXYHEMOGLOBIN 97.4 % (94.0-97.0); BG PCO2 35.3 mmHg (35.0-45.0); BG PH 7.444 (7.350-7.450); BG PO2 170.6 mmHg (75.0-100.0); BG SAMPLE SITE A-LINE; BG TIDAL VOLUME(mL) 574 mL; BG TOTAL HEMOGLOBIN 7.9 g/dL (12.0-18.0); BG VENT MODE MASK - BIPAP; BG VENT RATE 16 set
[2018-04-24] MEDS: LIDOCAINE 5% PATCH TOP SCH (21:39)
[2018-04-24 21:48] LABS: HEMATOCRIT. 21.8 % (42.0-52.0); HEMOGLOBIN. 7.3 g/dL (14.0-18.0); MEAN CORPUSCULAR HEMOGLOBIN 29.8 pg (28.0-32.0); MEAN CORPUSCULAR VOLUME 88.6 fL (80.0-94.0); MEAN PLATELET VOLUME 8.1 fl (7.4-10.4); PLATELET 136 x1000/uL (130-400); RED BLOOD CELL COUNT 2.46 mill/uL (4.7-6.1); RED CELL DISTRIBUTION WIDTH 12.5 % (11.6-14.6)
[2018-04-24 21:56] LABS: INR 1.3; PROTHROMBIN TIME 12.9 sec (9.1-11.1)
[2018-04-24] MEDS: MAGNESIUM 1 G PREMIX 100 ML IV PRN (22:22)
[2018-04-24 23:17] LABS: PLATELET ESTIMATE NORMAL
[2018-04-25] VITALS (58 sets, daily range): BP systolic 88–165; BP diastolic 41–77
[2018-04-25] MEDS: BLOOD SUGAR DIAGNOSTIC STRIP TEST SCH ×22 (01:00→23:45)
[2018-04-25] MEDS: MAGNESIUM HYDROXIDE 400MG/5ML 30ML UDC PO SCH ×4 (01:03→14:00)
[2018-04-25] MEDS: INSULIN REGULAR (DRIP) 100 UNITS in SODIUM CHLORIDE 0.9% 99 ML IV SCH (01:31)
[2018-04-25] MEDS: NOREPINEPHRINE 4 MG in DEXT 5% WATER 246 ML IV SCH (01:33)
[2018-04-25] MEDS: IPRATROPIUM/ALBUTEROL 0.5-3(2.5)MG/3ML NEB HHN SCH ×5 (03:45→21:00)
[2018-04-25 05:20] LABS: BG BASE EXCESS 3.1 mmol/L (-2.0-2.0); BG BILEVEL POS AIRWAY PRESSURE 14/6; BG CARBOXYHEMOGLOBIN 0.3 % (0.5-1.5); BG DEOXYHEMOGLOBIN 5.6 % (0.0-5.0); BG FRACTION INSPIRED OXYGEN 40; BG HCO3 ACT 26.4 mmol/L (22.0-26.0); BG METHEMOGLOBIN 0.2 % (0.0-1.5); BG OXYGEN SATURATION 94.4 % (92.0-98.5); BG OXYHEMOGLOBIN 93.9 % (94.0-97.0); BG PCO2 35.2 mmHg (35.0-45.0); BG PH 7.493 (7.350-7.450); BG PO2 70.8 mmHg (75.0-100.0); BG SAMPLE SITE A-LINE; BG VENT MODE MASK - BIPAP; BG VENT RATE 16 set
[2018-04-25] MEDS: MORPHINE SULFATE 10 MG/ML CPJ IV PRN ×2 (05:20→16:57)
[2018-04-25 05:45] LABS: HEMATOCRIT. 28.8 % (42.0-52.0); HEMOGLOBIN. 9.7 g/dL (14.0-18.0); MEAN CORPUSCULAR HEMOGLOBIN 29.6 pg (28.0-32.0); MEAN PLATELET VOLUME 8.5 fl (7.4-10.4); PLATELET 131 x1000/uL (130-400); RED BLOOD CELL COUNT 3.27 mill/uL (4.7-6.1); RED CELL DISTRIBUTION WIDTH 13.3 % (11.6-14.6)
[2018-04-25] MEDS: SODIUM CHLORIDE 0.9% INJ 3ML FLUSH IVF SCH ×3 (06:31→22:05)
[2018-04-25] MEDS: CEFAZOLIN 1000MG PREMIX 50 ML IV SCH (06:34)
[2018-04-25] MEDS ORDERED: ALBUMIN HUMAN 12.5G/250ML (5%) IV SCH (07:00)
[2018-04-25] MEDS: BACITRACIN 15GM TUBE TOP SCH ×2 (09:00→17:00)
[2018-04-25] MEDS: DOCUSATE SODIUM 100MG CAPSULE PO SCH ×2 (09:00→17:00)
[2018-04-25] MEDS ORDERED: LORAZEPAM 2MG/ML CPJ IV SCH (09:00)
[2018-04-25] MEDS: FAMOTIDINE 20MG/2ML VIAL IV SCH (09:02)
[2018-04-25 09:22] LABS: BG BASE EXCESS 2.5 mmol/L (-2.0-2.0); BG BILEVEL POS AIRWAY PRESSURE 14/6; BG CARBOXYHEMOGLOBIN 0.6 % (0.5-1.5); BG DEOXYHEMOGLOBIN 7.2 % (0.0-5.0); BG FRACTION INSPIRED OXYGEN 50; BG HCO3 ACT 26.6 mmol/L (22.0-26.0); BG METHEMOGLOBIN 0.2 % (0.0-1.5); BG OXYGEN SATURATION 92.7 % (92.0-98.5); BG PCO2 39.1 mmHg (35.0-45.0); BG PO2 63.3 mmHg (75.0-100.0); BG SAMPLE SITE A-LINE; BG TOTAL HEMOGLOBIN 10.8 g/dL (12.0-18.0); BG VENT MODE MASK - BIPAP; BG VENT RATE 16 set
[2018-04-25] MEDS ORDERED: FUROSEMIDE 40MG/4ML VIAL IVP SCH (10:15)
[2018-04-25] MEDS ORDERED: DEXTROSE 50% WATER 50ML SYRINGE IV SCH (10:15)
[2018-04-25] MEDS ORDERED: INSULIN REGULAR (HUMULIN R) UD 100 UNITS/ML SYR IV SCH (10:30)
[2018-04-25] MEDS ORDERED: SODIUM POLYSTYRENE SULFONATE 15 G/60 ML BOT PO SCH (11:00)
[2018-04-25 11:30] LABS: PLATELET ESTIMATE NORMAL
[2018-04-25] MEDS ORDERED: DEXT 5%/0.45% NACL 1000ML 1,000 ML IV SCH (11:30)
[2018-04-25] MEDS ORDERED: ALBUMIN HUMAN 12.5G/250ML (5%) IV NR (12:00)
[2018-04-25 17:09] LABS: BG BASE EXCESS 3.8 mmol/L (-2.0-2.0); BG BILEVEL POS AIRWAY PRESSURE 14/6; BG CARBOXYHEMOGLOBIN 0.5 % (0.5-1.5); BG DEOXYHEMOGLOBIN 5.3 % (0.0-5.0); BG FRACTION INSPIRED OXYGEN 70; BG METHEMOGLOBIN 0.3 % (0.0-1.5); BG OXYGEN SATURATION 94.7 % (92.0-98.5); BG OXYHEMOGLOBIN 93.9 % (94.0-97.0); BG PCO2 40.5 mmHg (35.0-45.0); BG PH 7.457 (7.350-7.450); BG PO2 75.4 mmHg (75.0-100.0); BG SAMPLE SITE A-LINE; BG TOTAL HEMOGLOBIN 11.6 g/dL (12.0-18.0); BG VENT MODE MASK - BIPAP
[2018-04-25] MEDS ORDERED: FUROSEMIDE 20MG/2ML VIAL IVP NR (20:15)
[2018-04-25] MEDS: OXYCODONE HCL/ACETAMINOPHEN 5/325MG TABLET PO PRN (21:29)
[2018-04-25] MEDS: LIDOCAINE 5% PATCH TOP SCH (22:05)
[2018-04-26] VITALS (33 sets, daily range): BP systolic 92–157; BP diastolic 47–93
[2018-04-26] MEDS: BLOOD SUGAR DIAGNOSTIC STRIP TEST SCH ×22 (00:45→23:45)
[2018-04-26] MEDS: OXYCODONE HCL/ACETAMINOPHEN 5/325MG TABLET PO PRN ×2 (04:04→22:41)
[2018-04-26] MEDS: IPRATROPIUM/ALBUTEROL 0.5-3(2.5)MG/3ML NEB HHN SCH ×6 (04:26→23:56)
[2018-04-26 04:42] LABS: HEMATOCRIT. 27.7 % (42.0-52.0); HEMOGLOBIN. 9.3 g/dL (14.0-18.0); MEAN CORPUSCULAR HEMOGLOBIN 29.7 pg (28.0-32.0); MEAN PLATELET VOLUME 9.1 fl (7.4-10.4); RED BLOOD CELL COUNT 3.15 mill/uL (4.7-6.1); RED CELL DISTRIBUTION WIDTH 13.5 % (11.6-14.6)
[2018-04-26 04:53] LABS: BG BASE EXCESS 1.8 mmol/L (-2.0-2.0); BG BILEVEL POS AIRWAY PRESSURE 14/6; BG CARBOXYHEMOGLOBIN 0.3 % (0.5-1.5); BG DEOXYHEMOGLOBIN 5.9 % (0.0-5.0); BG FRACTION INSPIRED OXYGEN 70; BG HCO3 ACT 25.6 mmol/L (22.0-26.0); BG METHEMOGLOBIN 0.1 % (0.0-1.5); BG OXYGEN SATURATION 94.1 % (92.0-98.5); BG OXYHEMOGLOBIN 93.7 % (94.0-97.0); BG PCO2 36.9 mmHg (35.0-45.0); BG PH 7.459 (7.350-7.450); BG PO2 75.2 mmHg (75.0-100.0); BG SAMPLE SITE A-LINE; BG VENT MODE MASK - BIPAP
[2018-04-26 04:55] LABS: PHOSPHORUS 7.4 mg/dL (2.5-4.9)
[2018-04-26] MEDS: SODIUM CHLORIDE 0.9% INJ 3ML FLUSH IVF SCH ×3 (05:28→21:11)
[2018-04-26 08:11] LABS: PLATELET ESTIMATE NORMAL
[2018-04-26 08:14] LABS: PLATELET 122 x1000/uL (130-400)
[2018-04-26] MEDS: FAMOTIDINE 20MG/2ML VIAL IV SCH (09:44)
[2018-04-26] MEDS: DOCUSATE SODIUM 100MG CAPSULE PO SCH ×2 (09:44→18:27)
[2018-04-26] MEDS: MAGNESIUM/ALUMINUM HYDROXIDE/SIMETHICONE 30ML UDC PO PRN ×2 (09:44→18:27)
[2018-04-26] MEDS: BACITRACIN 15GM TUBE TOP SCH ×2 (09:46→18:29)
[2018-04-26 10:12] LABS: BG BASE EXCESS 4.4 mmol/L (-2.0-2.0); BG CARBOXYHEMOGLOBIN 0.3 % (0.5-1.5); BG DEOXYHEMOGLOBIN 2.6 % (0.0-5.0); BG FRACTION INSPIRED OXYGEN 99.8; BG HCO3 ACT 28.4 mmol/L (22.0-26.0); BG METHEMOGLOBIN 0.3 % (0.0-1.5); BG OXYGEN SATURATION 97.4 % (92.0-98.5); BG OXYHEMOGLOBIN 96.8 % (94.0-97.0); BG PH 7.469 (7.350-7.450); BG PO2 108.6 mmHg (75.0-100.0); BG SAMPLE SITE A-LINE; BG TOTAL HEMOGLOBIN 9.9 g/dL (12.0-18.0); BG VENT MODE MASK - NRB
[2018-04-26] MEDS: INSULIN REGULAR (DRIP) 100 UNITS in SODIUM CHLORIDE 0.9% 99 ML IV SCH (10:13)
[2018-04-26] MEDS: MORPHINE SULFATE 10 MG/ML CPJ IV PRN (13:26)
[2018-04-26 13:49] LABS: BG CARBOXYHEMOGLOBIN 0.3 % (0.5-1.5); BG DEOXYHEMOGLOBIN 6.3 % (0.0-5.0); BG FRACTION INSPIRED OXYGEN 100; BG HCO3 ACT 25.6 mmol/L (22.0-26.0); BG METHEMOGLOBIN 0.3 % (0.0-1.5); BG OXYGEN SATURATION 93.7 % (92.0-98.5); BG OXYHEMOGLOBIN 93.1 % (94.0-97.0); BG PCO2 36.2 mmHg (35.0-45.0); BG PH 7.467 (7.350-7.450); BG PO2 71.8 mmHg (75.0-100.0); BG SAMPLE SITE RIGHT BRACHIAL; BG TOTAL HEMOGLOBIN 10.6 g/dL (12.0-18.0); BG VENT MODE VAPOTHERM
[2018-04-26] MEDS: LIDOCAINE 5% PATCH TOP SCH (20:09)
[2018-04-26] MEDS: ATORVASTATIN CALCIUM 10MG TABLET PO SCH (20:09)
[2018-04-27] VITALS (50 sets, daily range): BP systolic 78–123; BP diastolic 31–79
[2018-04-27] MEDS: BLOOD SUGAR DIAGNOSTIC STRIP TEST SCH ×16 (00:45→20:40)
[2018-04-27] MEDS: OXYCODONE HCL/ACETAMINOPHEN 5/325MG TABLET PO PRN ×4 (02:54→13:59)
[2018-04-27] MEDS: IPRATROPIUM/ALBUTEROL 0.5-3(2.5)MG/3ML NEB HHN SCH ×4 (04:16→21:24)
[2018-04-27] MEDS: SODIUM CHLORIDE 0.9% INJ 3ML FLUSH IVF SCH ×3 (05:06→20:46)
[2018-04-27 05:37] LABS: HEMATOCRIT. 27.1 % (42.0-52.0); HEMOGLOBIN. 9.1 g/dL (14.0-18.0); LYMPHOCYTES % 7.3 % (20.0-50.0); MEAN CORPUSCULAR HEMOGLOBIN 29.8 pg (28.0-32.0); MEAN CORPUSCULAR VOLUME 89.1 fL (80.0-94.0); MEAN PLATELET VOLUME 9.4 fl (7.4-10.4); MONOCYTES % 8.3 % (2.0-8.0); NEUTROPHILS % 84.4 % (40.0-76.0); PLATELET 136 x1000/uL (130-400); RED BLOOD CELL COUNT 3.05 mill/uL (4.7-6.1); RED CELL DISTRIBUTION WIDTH 13.4 % (11.6-14.6)
[2018-04-27 05:40] LABS: CHLORIDE 101 mEq/L (98-107)
[2018-04-27 05:46] LABS: PHOSPHORUS 5.4 mg/dL (2.5-4.9)
[2018-04-27] MEDS: MAGNESIUM HYDROXIDE 400MG/5ML 30ML UDC PO PRN (06:21)
[2018-04-27] MEDS: DOCUSATE SODIUM 100MG CAPSULE PO SCH ×2 (08:23→18:43)
[2018-04-27] MEDS: FAMOTIDINE 20MG/2ML VIAL IV SCH (08:23)
[2018-04-27] MEDS: BACITRACIN 15GM TUBE TOP SCH ×2 (08:57→20:46)
[2018-04-27] MEDS: MAGNESIUM 1 G PREMIX 100 ML IV PRN (10:46)
[2018-04-27] MEDS: MAGNESIUM HYDROXIDE 400MG/5ML 30ML UDC PO SCH ×3 (12:00→20:00)
[2018-04-27] MEDS: PHENOL/SODIUM PHENOLATE 1.4% SRPAY 177ML MM PRN (12:07)
[2018-04-27] MEDS ORDERED: DEXTROSE 50% WATER 50ML SYRINGE IV PRN (13:30)
[2018-04-27 13:33] LABS: BG BASE EXCESS 1.5 mmol/L (-2.0-2.0); BG CARBOXYHEMOGLOBIN 0.3 % (0.5-1.5); BG DEOXYHEMOGLOBIN 5.3 % (0.0-5.0); BG FRACTION INSPIRED OXYGEN 90; BG HCO3 ACT 24.9 mmol/L (22.0-26.0); BG METHEMOGLOBIN 0.2 % (0.0-1.5); BG OXYGEN SATURATION 94.7 % (92.0-98.5); BG OXYHEMOGLOBIN 94.2 % (94.0-97.0); BG PCO2 34.6 mmHg (35.0-45.0); BG PH 7.475 (7.350-7.450); BG PO2 76.9 mmHg (75.0-100.0); BG SAMPLE SITE LEFT BRACHIAL; BG TOTAL HEMOGLOBIN 9.8 g/dL (12.0-18.0); BG VENT MODE VAPOTHERM
[2018-04-27] MEDS ORDERED: LIDOCAINE HCL/PF 1% 2ML VIAL ONE (16:01)
[2018-04-27] MEDS ORDERED: BLOOD SUGAR DIAGNOSTIC STRIP TEST SCH (17:50)
[2018-04-27] MEDS: INSULIN LISPRO 100 UNITS/ML SUBCUT SCH ×2 (17:55→20:47)
[2018-04-27] MEDS: ATORVASTATIN CALCIUM 10MG TABLET PO SCH (20:45)
[2018-04-27] MEDS: LIDOCAINE 5% PATCH TOP SCH (20:46)
[2018-04-28] VITALS (51 sets, daily range): BP systolic 80–128; BP diastolic 35–76
[2018-04-28] MEDS: IPRATROPIUM/ALBUTEROL 0.5-3(2.5)MG/3ML NEB HHN SCH ×7 (00:05→21:38)
[2018-04-28] MEDS: MAGNESIUM HYDROXIDE 400MG/5ML 30ML UDC PO SCH ×2 (04:00)
[2018-04-28 05:00] LABS: BASOPHILS % 0.3 % (0.0-2.0); HEMATOCRIT. 27.5 % (42.0-52.0); LYMPHOCYTES % 7.8 % (20.0-50.0); MEAN CORPUSCULAR HEMOGLOBIN 29.4 pg (28.0-32.0); MEAN CORPUSCULAR VOLUME 89.5 fL (80.0-94.0); MEAN PLATELET VOLUME 9.6 fl (7.4-10.4); NEUTROPHILS % 84.9 % (40.0-76.0); PLATELET 136 x1000/uL (130-400); RED BLOOD CELL COUNT 3.07 mill/uL (4.7-6.1); RED CELL DISTRIBUTION WIDTH 13.5 % (11.6-14.6)
[2018-04-28 05:06] LABS: CHLORIDE 99 mEq/L (98-107)
[2018-04-28 05:15] LABS: PHOSPHORUS 4.3 mg/dL (2.5-4.9)
[2018-04-28] MEDS: SODIUM CHLORIDE 0.9% INJ 3ML FLUSH IVF SCH ×3 (06:19→21:45)
[2018-04-28] MEDS: BACITRACIN 15GM TUBE TOP SCH ×2 (06:23→17:14)
[2018-04-28] MEDS: PHENOL/SODIUM PHENOLATE 1.4% SRPAY 177ML MM PRN (06:23)
[2018-04-28] MEDS: DOCUSATE SODIUM 100MG CAPSULE PO SCH ×2 (07:49→17:13)
[2018-04-28] MEDS: FAMOTIDINE 20MG/2ML VIAL IV SCH (07:49)
[2018-04-28] MEDS: OXYCODONE HCL/ACETAMINOPHEN 5/325MG TABLET PO PRN ×3 (07:49→17:52)
[2018-04-28] MEDS: BLOOD SUGAR DIAGNOSTIC STRIP TEST SCH ×4 (08:19→20:56)
[2018-04-28] MEDS: INSULIN LISPRO 100 UNITS/ML SUBCUT SCH ×4 (08:21→20:59)
[2018-04-28 08:25] LABS: BG BASE EXCESS 4.3 mmol/L (-2.0-2.0); BG CARBOXYHEMOGLOBIN 0.3 % (0.5-1.5); BG FRACTION INSPIRED OXYGEN 97; BG HCO3 ACT 26.8 mmol/L (22.0-26.0); BG METHEMOGLOBIN 0.3 % (0.0-1.5); BG OXYHEMOGLOBIN 94.4 % (94.0-97.0); BG PCO2 32.2 mmHg (35.0-45.0); BG PH 7.538 (7.350-7.450); BG PO2 71.9 mmHg (75.0-100.0); BG SAMPLE SITE LEFT RADIAL; BG TOTAL HEMOGLOBIN 9.9 g/dL (12.0-18.0); BG VENT MODE VAPOTHERM
[2018-04-28] MEDS: METHOCARBAMOL 500MG TABLET PO PRN (10:10)
[2018-04-28] MEDS ORDERED: ALBUMIN HUMAN 12.5G/250ML (5%) IV NR (13:45)
[2018-04-28 16:49] LABS: BG BASE EXCESS 3.4 mmol/L (-2.0-2.0); BG CARBOXYHEMOGLOBIN 0.3 % (0.5-1.5); BG DEOXYHEMOGLOBIN 7.5 % (0.0-5.0); BG FRACTION INSPIRED OXYGEN 50; BG HCO3 ACT 25.8 mmol/L (22.0-26.0); BG METHEMOGLOBIN 0.2 % (0.0-1.5); BG OXYGEN SATURATION 92.5 % (92.0-98.5); BG PCO2 31.2 mmHg (35.0-45.0); BG PH 7.536 (7.350-7.450); BG PO2 62.8 mmHg (75.0-100.0); BG SAMPLE SITE LEFT BRACHIAL; BG TOTAL HEMOGLOBIN 9.7 g/dL (12.0-18.0); BG VENT MODE VAPOTHERM
[2018-04-28] MEDS: ASPIRIN 81MG TABLET PO SCH (18:26)
[2018-04-28] MEDS: ATORVASTATIN CALCIUM 10MG TABLET PO SCH (20:48)
[2018-04-28] MEDS: LIDOCAINE 5% PATCH TOP SCH (20:49)
[2018-04-29] VITALS (52 sets, daily range): BP systolic 90–149; BP diastolic 38–88
[2018-04-29] MEDS: IPRATROPIUM/ALBUTEROL 0.5-3(2.5)MG/3ML NEB HHN SCH ×5 (00:51→20:27)
[2018-04-29 05:24] LABS: HEMATOCRIT. 27.2 % (42.0-52.0); HEMOGLOBIN. 9.2 g/dL (14.0-18.0); MEAN CORPUSCULAR HEMOGLOBIN 30.2 pg (28.0-32.0); MEAN CORPUSCULAR VOLUME 89.2 fL (80.0-94.0); MEAN PLATELET VOLUME 9.2 fl (7.4-10.4); PLATELET 153 x1000/uL (130-400); RED BLOOD CELL COUNT 3.05 mill/uL (4.7-6.1); RED CELL DISTRIBUTION WIDTH 13.3 % (11.6-14.6)
[2018-04-29 05:25] LABS: CHLORIDE 102 mEq/L (98-107)
[2018-04-29 05:37] LABS: PHOSPHORUS 4.1 mg/dL (2.5-4.9)
[2018-04-29] MEDS: SODIUM CHLORIDE 0.9% INJ 3ML FLUSH IVF SCH ×3 (06:00→22:00)
[2018-04-29] MEDS: BACITRACIN 15GM TUBE TOP SCH ×2 (06:00→18:28)
[2018-04-29] MEDS ORDERED: CALCIUM CHLORIDE 1,000 MG in DEXT 5% WATER 90 ML IV NR (06:30)
[2018-04-29] MEDS: INSULIN LISPRO 100 UNITS/ML SUBCUT SCH ×4 (07:40→20:29)
[2018-04-29] MEDS: BLOOD SUGAR DIAGNOSTIC STRIP TEST SCH ×4 (07:40→20:29)
[2018-04-29] MEDS: ASPIRIN 81MG TABLET PO SCH (08:46)
[2018-04-29] MEDS: DOCUSATE SODIUM 100MG CAPSULE PO SCH ×2 (08:46→17:27)
[2018-04-29] MEDS: FAMOTIDINE 20MG TABLET PO SCH (08:47)
[2018-04-29 11:36] LABS: BG BASE EXCESS 4.9 mmol/L (-2.0-2.0); BG CARBOXYHEMOGLOBIN 0.3 % (0.5-1.5); BG DEOXYHEMOGLOBIN 3.1 % (0.0-5.0); BG FRACTION INSPIRED OXYGEN 40; BG HCO3 ACT 27.8 mmol/L (22.0-26.0); BG METHEMOGLOBIN 0.3 % (0.0-1.5); BG OXYGEN SATURATION 96.9 % (92.0-98.5); BG OXYHEMOGLOBIN 96.3 % (94.0-97.0); BG PCO2 34.6 mmHg (35.0-45.0); BG PH 7.523 (7.350-7.450); BG PO2 94.5 mmHg (75.0-100.0); BG SAMPLE SITE LEFT BRACHIAL; BG TOTAL HEMOGLOBIN 9.6 g/dL (12.0-18.0); BG VENT MODE NASAL CANNULA
[2018-04-29] MEDS: OXYCODONE HCL/ACETAMINOPHEN 5/325MG TABLET PO PRN (12:57)
[2018-04-29 15:20] LABS: NUCLEATED RED BLOOD CELLS 1 /100 WBC; PLATELET ESTIMATE NORMAL
[2018-04-29] MEDS: ATORVASTATIN CALCIUM 10MG TABLET PO SCH (20:28)
[2018-04-29] MEDS: LIDOCAINE 5% PATCH TOP SCH (21:00)
[2018-04-30] VITALS (31 sets, daily range): BP systolic 97–149; BP diastolic 29–83
[2018-04-30] MEDS: IPRATROPIUM/ALBUTEROL 0.5-3(2.5)MG/3ML NEB HHN SCH ×7 (00:24→21:05)
[2018-04-30] MEDS: OXYCODONE HCL/ACETAMINOPHEN 5/325MG TABLET PO PRN ×4 (03:38→20:50)
[2018-04-30 05:21] LABS: HEMATOCRIT. 28.2 % (42.0-52.0); HEMOGLOBIN. 9.4 g/dL (14.0-18.0); MEAN CORPUSCULAR HEMOGLOBIN 30.1 pg (28.0-32.0); MEAN CORPUSCULAR VOLUME 90.1 fL (80.0-94.0); MEAN PLATELET VOLUME 9.1 fl (7.4-10.4); PLATELET 193 x1000/uL (130-400); RED BLOOD CELL COUNT 3.13 mill/uL (4.7-6.1); RED CELL DISTRIBUTION WIDTH 13.2 % (11.6-14.6)
[2018-04-30] MEDS: BACITRACIN 15GM TUBE TOP SCH ×2 (05:47→17:32)
[2018-04-30] MEDS: SODIUM CHLORIDE 0.9% INJ 3ML FLUSH IVF SCH ×3 (05:47→22:59)
[2018-04-30] MEDS: BLOOD SUGAR DIAGNOSTIC STRIP TEST SCH ×4 (07:46→21:24)
[2018-04-30] MEDS: INSULIN LISPRO 100 UNITS/ML SUBCUT SCH ×4 (07:47→21:00)
[2018-04-30] MEDS: ASPIRIN 81MG TABLET PO SCH (08:29)
[2018-04-30] MEDS: METHOCARBAMOL 500MG TABLET PO PRN (08:29)
[2018-04-30] MEDS: FAMOTIDINE 20MG TABLET PO SCH (08:29)
[2018-04-30] MEDS: DOCUSATE SODIUM 100MG CAPSULE PO SCH ×2 (08:29→17:32)
[2018-04-30] MEDS ORDERED: MAGNESIUM 1 G PREMIX 100 ML IV SCH (08:30)
[2018-04-30 09:41] LABS: PLATELET ESTIMATE NORMAL
[2018-04-30] MEDS ORDERED: FUROSEMIDE 20MG/2ML VIAL IVP NR (11:07)
[2018-04-30] MEDS: ATORVASTATIN CALCIUM 10MG TABLET PO SCH (20:49)
[2018-04-30] MEDS: POLYETHYLENE GLYCOL 3350 (17GM) 1 DOSE PACK PO SCH (20:49)
[2018-04-30] MEDS: ALPRAZOLAM 0.25 MG TABLET PO PRN (21:42)
[2018-04-30] MEDS: LIDOCAINE 5% PATCH TOP SCH (22:59)
[2018-05-01] VITALS (13 sets, daily range): BP systolic 104–128; BP diastolic 51–68
[2018-05-01] MEDS: IPRATROPIUM/ALBUTEROL 0.5-3(2.5)MG/3ML NEB HHN SCH ×6 (04:00→20:29)
[2018-05-01] MEDS: OXYCODONE HCL/ACETAMINOPHEN 5/325MG TABLET PO PRN ×2 (05:43→11:19)
[2018-05-01] MEDS: SODIUM CHLORIDE 0.9% INJ 3ML FLUSH IVF SCH ×3 (05:43→22:00)
[2018-05-01] MEDS: BACITRACIN 15GM TUBE TOP SCH ×2 (05:44→17:36)
[2018-05-01 06:19] LABS: HEMATOCRIT. 26.5 % (42.0-52.0); HEMOGLOBIN. 8.8 g/dL (14.0-18.0); MEAN CORPUSCULAR VOLUME 90.3 fL (80.0-94.0); MEAN PLATELET VOLUME 8.8 fl (7.4-10.4); PLATELET 209 x1000/uL (130-400); RED BLOOD CELL COUNT 2.93 mill/uL (4.7-6.1); RED CELL DISTRIBUTION WIDTH 13.5 % (11.6-14.6)
[2018-05-01] MEDS: BLOOD SUGAR DIAGNOSTIC STRIP TEST SCH (06:25)
[2018-05-01] MEDS: PHENOL/SODIUM PHENOLATE 1.4% SRPAY 177ML MM PRN (06:25)
[2018-05-01] MEDS: INSULIN LISPRO 100 UNITS/ML SUBCUT SCH (06:26)
[2018-05-01 07:19] LABS: PHOSPHORUS 3.7 mg/dL (2.5-4.9)
[2018-05-01] MEDS: ASPIRIN 81MG TABLET PO SCH (08:19)
[2018-05-01] MEDS: DOCUSATE SODIUM 100MG CAPSULE PO SCH ×2 (08:19→17:36)
[2018-05-01] MEDS: FAMOTIDINE 20MG TABLET PO SCH (08:19)
[2018-05-01 12:38] LABS: NUCLEATED RED BLOOD CELLS 1 /100 WBC; PLATELET ESTIMATE NORMAL
[2018-05-01] MEDS ORDERED: BISACODYL 10MG SUPP PR PRN (17:45)
[2018-05-01] MEDS: LACTULOSE 20G/30ML UDC PO SCH ×2 (18:06→21:18)
[2018-05-01] MEDS: ALPRAZOLAM 0.25 MG TABLET PO PRN (21:18)
[2018-05-01] MEDS: POLYETHYLENE GLYCOL 3350 (17GM) 1 DOSE PACK PO SCH (21:18)
[2018-05-01] MEDS: ATORVASTATIN CALCIUM 10MG TABLET PO SCH (21:18)
[2018-05-01] MEDS: LIDOCAINE 5% PATCH TOP SCH (21:19)
[2018-05-02] VITALS (13 sets, daily range): BP systolic 113–138; BP diastolic 56–72
[2018-05-02] MEDS: IPRATROPIUM/ALBUTEROL 0.5-3(2.5)MG/3ML NEB HHN SCH ×6 (01:34→20:50)
[2018-05-02] MEDS: BACITRACIN 15GM TUBE TOP SCH ×2 (06:28→16:20)
[2018-05-02] MEDS: OXYCODONE HCL/ACETAMINOPHEN 5/325MG TABLET PO PRN ×2 (06:28→22:47)
[2018-05-02 06:51] LABS: INR 1.2; PROTHROMBIN TIME 11.8 sec (9.1-11.1)
[2018-05-02] MEDS: SODIUM CHLORIDE 0.9% INJ 3ML FLUSH IVF SCH ×3 (06:52→21:09)
[2018-05-02 06:58] LABS: HEMATOCRIT. 27.7 % (42.0-52.0); HEMOGLOBIN. 9.3 g/dL (14.0-18.0); MEAN CORPUSCULAR HEMOGLOBIN 30.3 pg (28.0-32.0); MEAN CORPUSCULAR VOLUME 90.5 fL (80.0-94.0); MEAN PLATELET VOLUME 9.1 fl (7.4-10.4); PLATELET 237 x1000/uL (130-400); RED BLOOD CELL COUNT 3.06 mill/uL (4.7-6.1); RED CELL DISTRIBUTION WIDTH 13.2 % (11.6-14.6)
[2018-05-02 07:23] LABS: CHLORIDE 103 mEq/L (98-107)
[2018-05-02 07:35] LABS: PHOSPHORUS 3.1 mg/dL (2.5-4.9)
[2018-05-02] MEDS ORDERED: LIDOCAINE HCL/PF 1% 10 MG/ML 5ML VIAL ONE ×2 (08:01→08:51)
[2018-05-02] MEDS ORDERED: MIDAZOLAM HCL 2 MG/2 ML VIAL ONE (08:01)
[2018-05-02] MEDS ORDERED: FENTANYL CITRATE/PF 50MCG/ML 2ML VIAL ONE ×2 (08:02→09:12)
[2018-05-02] MEDS ORDERED: CEFAZOLIN 1000MG PREMIX 50 ML IV ONE ×2 (08:02→08:21)
[2018-05-02] MEDS ORDERED: GENTAMICIN/NS IRRIGATION 500 ML IR ONE (08:02)
[2018-05-02] MEDS: LACTULOSE 20G/30ML UDC PO SCH (09:00)
[2018-05-02] MEDS: DOCUSATE SODIUM 100MG CAPSULE PO SCH ×2 (09:00→16:20)
[2018-05-02] MEDS: ASPIRIN 81MG TABLET PO SCH (09:00)
[2018-05-02] MEDS ORDERED: MIDAZOLAM HCL 5 MG/5 ML VIAL ONE (09:07)
[2018-05-02] MEDS: DUTASTERIDE 0.5MG CAPSULE PO SCH (11:27)
[2018-05-02] MEDS: FAMOTIDINE 20MG TABLET PO SCH (11:29)
[2018-05-02] MEDS: TAMSULOSIN HCL 0.4MG SR CAPSULE PO SCH ×2 (11:29→21:08)
[2018-05-02 12:30] LABS: PLATELET ESTIMATE NORMAL
[2018-05-02] MEDS: CEFAZOLIN 1000MG PREMIX 50 ML IV SCH ×2 (16:16→23:27)
[2018-05-02] MEDS: ATORVASTATIN CALCIUM 10MG TABLET PO SCH (21:08)
[2018-05-02] MEDS: ALPRAZOLAM 0.25 MG TABLET PO PRN (21:08)
[2018-05-02] MEDS: POLYETHYLENE GLYCOL 3350 (17GM) 1 DOSE PACK PO SCH (21:08)
[2018-05-02] MEDS: PHENOL/SODIUM PHENOLATE 1.4% SRPAY 177ML MM PRN (21:11)
[2018-05-02] MEDS: LIDOCAINE 5% PATCH TOP SCH (22:47)
[2018-05-03] VITALS (13 sets, daily range): BP systolic 106–146; BP diastolic 54–82
[2018-05-03] MEDS: IPRATROPIUM/ALBUTEROL 0.5-3(2.5)MG/3ML NEB HHN SCH ×5 (02:00→19:52)
[2018-05-03] MEDS: SODIUM CHLORIDE 0.9% INJ 3ML FLUSH IVF SCH ×3 (05:56→22:00)
[2018-05-03] MEDS: BACITRACIN 15GM TUBE TOP SCH ×2 (05:56→17:27)
[2018-05-03] MEDS: OXYCODONE HCL/ACETAMINOPHEN 5/325MG TABLET PO PRN (05:57)
[2018-05-03 07:29] LABS: CHLORIDE 104 mEq/L (98-107)
[2018-05-03] MEDS: ASPIRIN 81MG TABLET PO SCH (09:10)
[2018-05-03] MEDS: FAMOTIDINE 20MG TABLET PO SCH (09:10)
[2018-05-03] MEDS: DUTASTERIDE 0.5MG CAPSULE PO SCH (09:10)
[2018-05-03] MEDS: TAMSULOSIN HCL 0.4MG SR CAPSULE PO SCH ×2 (09:11→21:45)
[2018-05-03] MEDS: CEFAZOLIN 1000MG PREMIX 50 ML IV SCH ×2 (09:13→17:26)
[2018-05-03] MEDS: METHOCARBAMOL 500MG TABLET PO PRN (09:24)
[2018-05-03] MEDS: DOCUSATE SODIUM 100MG CAPSULE PO SCH ×2 (09:24→17:00)
[2018-05-03] MEDS ORDERED: SORBITOL 70% SOLN 30ML PO NR (13:00)
[2018-05-03] MEDS ORDERED: BISACODYL 10MG SUPP PR NR (16:15)
[2018-05-03] MEDS: LACTULOSE 20G/30ML UDC PO SCH ×2 (16:51→21:33)
[2018-05-03] MEDS: POLYETHYLENE GLYCOL 3350 (17GM) 1 DOSE PACK PO SCH (21:43)
[2018-05-03] MEDS: ATORVASTATIN CALCIUM 10MG TABLET PO SCH (21:45)
[2018-05-03] MEDS: LIDOCAINE 5% PATCH TOP SCH (21:47)
[2018-05-04] VITALS (9 sets, daily range): BP systolic 96–138; BP diastolic 50–78
[2018-05-04] MEDS: IPRATROPIUM/ALBUTEROL 0.5-3(2.5)MG/3ML NEB HHN SCH ×6 (00:10→21:35)
[2018-05-04] MEDS: BACITRACIN 15GM TUBE TOP SCH ×2 (06:00→17:02)
[2018-05-04] MEDS: DOCUSATE SODIUM 100MG CAPSULE PO SCH ×2 (08:47→16:59)
[2018-05-04] MEDS: FAMOTIDINE 20MG TABLET PO SCH (08:47)
[2018-05-04] MEDS: DUTASTERIDE 0.5MG CAPSULE PO SCH (08:48)
[2018-05-04] MEDS: ASPIRIN 81MG TABLET PO SCH (08:48)
[2018-05-04] MEDS: TAMSULOSIN HCL 0.4MG SR CAPSULE PO SCH ×2 (08:48→20:55)
[2018-05-04] MEDS: LACTULOSE 20G/30ML UDC PO SCH (08:48)
[2018-05-04] MEDS: OXYCODONE HCL/ACETAMINOPHEN 5/325MG TABLET PO PRN ×3 (08:48→20:56)
[2018-05-04] MEDS: SODIUM CHLORIDE 0.9% INJ 3ML FLUSH IVF SCH ×2 (13:01→21:00)
[2018-05-04] MEDS: METHOCARBAMOL 500MG TABLET PO PRN ×2 (14:01→20:55)
[2018-05-04] MEDS: ATORVASTATIN CALCIUM 10MG TABLET PO SCH (20:55)
[2018-05-04] MEDS: LIDOCAINE 5% PATCH TOP SCH (20:56)
[2018-05-04] MEDS: POLYETHYLENE GLYCOL 3350 (17GM) 1 DOSE PACK PO SCH (21:00)
[2018-05-04] MEDS: ALPRAZOLAM 0.25 MG TABLET PO PRN (22:37)
[2018-05-05] VITALS (8 sets, daily range): BP systolic 113–132; BP diastolic 53–70
[2018-05-05] MEDS: METHOCARBAMOL 500MG TABLET PO PRN (04:29)
[2018-05-05] MEDS ORDERED: OXYCODONE HCL/ACETAMINOPHEN 5/325MG TABLET PO PRN (04:30)
[2018-05-05] MEDS: SODIUM CHLORIDE 0.9% INJ 3ML FLUSH IVF SCH (05:06)
[2018-05-05] MEDS: BACITRACIN 15GM TUBE TOP SCH (05:26)
[2018-05-05] MEDS: DUTASTERIDE 0.5MG CAPSULE PO SCH (08:54)
[2018-05-05] MEDS: ASPIRIN 81MG TABLET PO SCH (08:54)
[2018-05-05] MEDS: FAMOTIDINE 20MG TABLET PO SCH (08:54)
[2018-05-05] MEDS: TAMSULOSIN HCL 0.4MG SR CAPSULE PO SCH (08:54)
[2018-05-05] MEDS: DOCUSATE SODIUM 100MG CAPSULE PO SCH (08:54)
[2018-05-05 10:24] LABS: HEMATOCRIT 26.8 % (42.0-52.0); HEMOGLOBIN 9.1 g/dL (14.0-18.0); MEAN CORPUSCULAR HEMOGLOBIN 30.1 pg (28.0-32.0); PLATELET 340 x1000/uL (130-400); RED BLOOD CELL COUNT 3.01 mill/uL (4.7-6.1); RED CELL DISTRIBUTION WIDTH 13.5 % (11.6-14.6)
[2018-05-05 10:36] LABS: CHLORIDE 105 mEq/L (98-107)
[2018-05-05] MEDS ORDERED: IPRATROPIUM/ALBUTEROL 0.5-3(2.5)MG/3ML NEB HHN SCH (12:00)
== END 2018-05-05 13:58 | DRG 235 ==
LOC: ER 08:03 → 5WST 10:08 → EDBEDREQ 10:11 → ENRESERV 10:40 → 3WST 04-22 17:40 → CVICU 04-24 07:13 → 3WST 04-30 13:26
PROVIDERS: ADMIT Internal Medicine; ATTEND Internal Medicine
PROC: 02100Z9 Bypass Coronary Artery, One Artery from Left Internal Mammary, Open Approach (ICD-10-PCS; principal; 2018-04-24)
PROC: 021209W Bypass Coronary Artery, Three Arteries from Aorta with Autologous Venous Tissue, Open Approach (ICD-10-PCS; 2018-04-24)
PROC: 06BQ0ZZ Excision of Left Saphenous Vein, Open Approach (ICD-10-PCS; 2018-04-24)
PROC: 30233N1 Transfusion of Nonautologous Red Blood Cells into Peripheral Vein, Percutaneous Approach (ICD-10-PCS; 2018-04-24)
PROC: 5A1221Z Performance of Cardiac Output, Continuous (ICD-10-PCS; 2018-04-24)
PROC: B24BZZ4 Ultrasonography of Heart with Aorta, Transesophageal (ICD-10-PCS; 2018-04-24)
PROC: 0W9B3ZZ Drainage of Left Pleural Cavity, Percutaneous Approach (ICD-10-PCS; 2018-04-27)
PROC: 5A09357 Assistance with Respiratory Ventilation, Less than 24 Consecutive Hours, Continuous Positive Airway Pressure (ICD-10-PCS; 2018-04-27)
PROC: 5A09357 Assistance with Respiratory Ventilation, Less than 24 Consecutive Hours, Continuous Positive Airway Pressure (ICD-10-PCS; 2018-04-28)
PROC: 5A1213Z Performance of Cardiac Pacing, Intermittent (ICD-10-PCS; 2018-04-28)
PROC: 02H63JZ Insertion of Pacemaker Lead into Right Atrium, Percutaneous Approach (ICD-10-PCS; 2018-05-02)
PROC: 02HK3JZ Insertion of Pacemaker Lead into Right Ventricle, Percutaneous Approach (ICD-10-PCS; 2018-05-02)
PROC: 0JH606Z Insertion of Pacemaker, Dual Chamber into Chest Subcutaneous Tissue and Fascia, Open Approach (ICD-10-PCS; 2018-05-02)
DX: I25.110 Atherosclerotic heart disease of native coronary artery with unstable angina pectoris (principal); J96.01 Acute respiratory failure with hypoxia; D62 Acute posthemorrhagic anemia; E44.0 Moderate protein-calorie malnutrition; E87.3 Alkalosis; G93.40 Encephalopathy, unspecified; I45.2 Bifascicular block; J90 Pleural effusion, not elsewhere classified; M47.12 Other spondylosis with myelopathy, cervical region; N17.9 Acute kidney failure, unspecified; I42.0 Dilated cardiomyopathy; K21.9 Gastro-esophageal reflux disease without esophagitis; E78.00 Pure hypercholesterolemia, unspecified; I25.5 Ischemic cardiomyopathy; N40.0 Benign prostatic hyperplasia without lower urinary tract symptoms; D63.8 Anemia in other chronic diseases classified elsewhere; G89.29 Other chronic pain; B19.20 Unspecified viral hepatitis C without hepatic coma; D72.829 Elevated white blood cell count, unspecified; E11.22 Type 2 diabetes mellitus with diabetic chronic kidney disease; E78.5 Hyperlipidemia, unspecified; E83.41 Hypermagnesemia; E83.52 Hypercalcemia; M48.02 Spinal stenosis, cervical region; I95.9 Hypotension, unspecified; R26.9 Unspecified abnormalities of gait and mobility; K59.00 Constipation, unspecified; M48.9 Spondylopathy, unspecified; E87.5 Hyperkalemia; E87.6 Hypokalemia; F12.90 Cannabis use, unspecified, uncomplicated; G93.0 Cerebral cysts; I12.9 Hypertensive chronic kidney disease with stage 1 through stage 4 chronic kidney disease, or unspecified chronic kidney disease; I44.1 Atrioventricular block, second degree; I49.5 Sick sinus syndrome; M48.061 Spinal stenosis, lumbar region without neurogenic claudication; N18.9 Chronic kidney disease, unspecified; R13.10 Dysphagia, unspecified; Z78.1 Physical restraint status; Z79.02 Long term (current) use of antithrombotics/antiplatelets; Z86.73 Personal history of transient ischemic attack (TIA), and cerebral infarction without residual deficits; Z87.891 Personal history of nicotine dependence; Z90.81 Acquired absence of spleen; Z79.82 Long term (current) use of aspirin; Z95.5 Presence of coronary angioplasty implant and graft
CPT/HCPCS: 32555; 33208; 36415; 36600; 71045; 72141; 72146; 72147; 72148; 80048; 80061; 82330; 82375; 82550; 82553; 82805; 82962; 83036; 83735; 83880; 84100; 84132; 84443; 84484; 85027; 85347; 85379; 85520; 86850; 86900; 86920; 92523; 92610; 93005; 93880; 93970; 94640; 94660; 94664; 96374; 96375; 96376; 97110; 97116; 97163; 97167; 97530; 97535; 99291; A9577; C1725; C1729; C1751; C1785; C1892; C1898; J0282; J0330; J0690; J1170; J1250; J1644; J1650; J1720; J1815; J1940; J2060; J2250; J2260; J2270; J2310; J2370; J2405; J2710; J2720; J2765; J2930; J3010; J3475; J3480; J3490; J7040; J7050; J7060; J7620; L1830; L3908; P9016; P9041; P9047; Q9968

== ENCOUNTER 2018-05-05 14:00 | Inpatient (IN) | payer BC, MEDICARE ==
[~2018-05-05] VITALS: Ht 167.6 cm; Wt 75.7 kg
[~2018-05-05 14:00] MED LIST changes: +CLOP75TA33 PO; -FURO40TA5 PO; +HYDR-4009 PO; +METH-612 PO; +NITR0.4T49 SL; -PHEN30CA3 PO
[2018-05-05 15:00] VITALS: BP 136/74
[2018-05-05] MEDS ORDERED: ACETAMINOPHEN 325MG TABLET PO PRN (15:15)
[2018-05-05] MEDS ORDERED: MAGNESIUM/ALUMINUM HYDROXIDE/SIMETHICONE 30ML UDC PO PRN (15:15)
[2018-05-05] MEDS ORDERED: ONDANSETRON HCL 4MG/2ML INJ IV PRN (15:15)
[2018-05-05] MEDS ORDERED: GUAIFENESIN 200MG/10ML SUGAR FREE UDC PO PRN (15:15)
[2018-05-05] MEDS ORDERED: DOCUSATE SODIUM 100MG CAPSULE PO PRN (15:15)
[2018-05-05] MEDS ORDERED: BISACODYL 10MG SUPP PR PRN (15:15)
[2018-05-05] MEDS ORDERED: NITROGLYCERIN 0.4MG TABLET SL SL PRN (15:15)
[2018-05-05] MEDS ORDERED: NA PHOS,M-B/NA PHOS,DI-BA ENEMA 118ML PR PRN (15:15)
[2018-05-05] MEDS ORDERED: CLONIDINE 0.1MG TABLET PO PRN (15:15)
[2018-05-05] MEDS ORDERED: IPRATROPIUM/ALBUTEROL 0.5-3(2.5)MG/3ML NEB HHN PRN (15:15)
[2018-05-05 16:40] VITALS: BP 136/74
[2018-05-05] MEDS: TAMSULOSIN HCL 0.4MG SR CAPSULE PO SCH (17:17)
[2018-05-05] MEDS: DOCUSATE SODIUM 100MG CAPSULE PO SCH (17:17)
[2018-05-05] MEDS ORDERED: PHENOL/SODIUM PHENOLATE 1.4% SRPAY 177ML MM PRN (18:00)
[2018-05-05 20:00] VITALS: BP 135/65
[2018-05-05] MEDS: BACITRACIN 15GM TUBE TOP SCH (21:00)
[2018-05-05] MEDS: IPRATROPIUM/ALBUTEROL 0.5-3(2.5)MG/3ML NEB HHN SCH (21:57)
[2018-05-05] MEDS: POLYETHYLENE GLYCOL 3350 (17GM) 1 DOSE PACK PO SCH (22:44)
[2018-05-05] MEDS: ATORVASTATIN CALCIUM 10MG TABLET PO SCH (22:45)
[2018-05-06] MEDS: ALPRAZOLAM 0.25 MG TABLET PO PRN (00:46)
[2018-05-06] MEDS: METHOCARBAMOL 500MG TABLET PO PRN ×2 (00:49→20:32)
[2018-05-06] MEDS: IPRATROPIUM/ALBUTEROL 0.5-3(2.5)MG/3ML NEB HHN SCH ×4 (02:25→19:32)
[2018-05-06] MEDS: OXYCODONE HCL/ACETAMINOPHEN 5/325MG TABLET PO PRN ×2 (06:51→19:24)
[2018-05-06] MEDS: TAMSULOSIN HCL 0.4MG SR CAPSULE PO SCH ×2 (06:51→16:57)
[2018-05-06 07:17] LABS: HEMATOCRIT. 27.7 % (42.0-52.0); HEMOGLOBIN. 9.4 g/dL (14.0-18.0); MEAN CORPUSCULAR VOLUME 88.3 fL (80.0-94.0); MEAN PLATELET VOLUME 7.6 fl (7.4-10.4); PLATELET 350 x1000/uL (130-400); RED BLOOD CELL COUNT 3.13 mill/uL (4.7-6.1); RED CELL DISTRIBUTION WIDTH 13.4 % (11.6-14.6)
[2018-05-06] MEDS: ENOXAPARIN 40MG/0.4ML SYR SUBCUT SCH (08:41)
[2018-05-06] MEDS: DUTASTERIDE 0.5MG CAPSULE PO SCH (08:42)
[2018-05-06] MEDS: DOCUSATE SODIUM 100MG CAPSULE PO SCH ×2 (08:42→16:58)
[2018-05-06] MEDS: FAMOTIDINE 20MG TABLET PO SCH (08:42)
[2018-05-06] MEDS: ASPIRIN 81MG TABLET PO SCH (08:42)
[2018-05-06] MEDS: BACITRACIN 15GM TUBE TOP SCH ×2 (09:00→20:32)
[2018-05-06 10:03] LABS: CHLORIDE 106 mEq/L (98-107)
[2018-05-06] MEDS: CARVEDILOL 3.125 MG TABLET PO SCH ×2 (14:29→20:31)
[2018-05-06] MEDS: LIDOCAINE 5% PATCH TOP SCH (14:30)
[2018-05-06 14:34] LABS: PLATELET ESTIMATE NORMAL
[2018-05-06 20:00] VITALS: BP 123/54
[2018-05-06] MEDS: ATORVASTATIN CALCIUM 10MG TABLET PO SCH (20:31)
[2018-05-06] MEDS: POLYETHYLENE GLYCOL 3350 (17GM) 1 DOSE PACK PO SCH (20:31)
[2018-05-07] MEDS: IPRATROPIUM/ALBUTEROL 0.5-3(2.5)MG/3ML NEB HHN SCH ×3 (02:45→20:35)
[2018-05-07] MEDS: OXYCODONE HCL/ACETAMINOPHEN 5/325MG TABLET PO PRN ×2 (04:21→21:09)
[2018-05-07] MEDS: METHOCARBAMOL 500MG TABLET PO PRN ×2 (04:40→23:40)
[2018-05-07] MEDS: TAMSULOSIN HCL 0.4MG SR CAPSULE PO SCH ×2 (05:59→16:53)
[2018-05-07 06:21] LABS: HEMATOCRIT. 25.4 % (42.0-52.0); HEMOGLOBIN. 8.6 g/dL (14.0-18.0); MEAN CORPUSCULAR HEMOGLOBIN 29.9 pg (28.0-32.0); MEAN CORPUSCULAR VOLUME 88.4 fL (80.0-94.0); MEAN PLATELET VOLUME 7.4 fl (7.4-10.4); PLATELET 332 x1000/uL (130-400); RED BLOOD CELL COUNT 2.88 mill/uL (4.7-6.1); RED CELL DISTRIBUTION WIDTH 13.5 % (11.6-14.6)
[2018-05-07 06:50] LABS: PROSTRATE SPECIFIC AG TOTAL 0.19 ng/mL (0.0-4.0)
[2018-05-07 06:53] LABS: FOLIC ACID (FOLATE) SERUM 9.3 ng/mL (>5.38)
[2018-05-07 08:00] VITALS: BP 134/65
[2018-05-07 08:27] LABS: CHLORIDE 107 mEq/L (98-107)
[2018-05-07 08:35] LABS: PHOSPHORUS 2.7 mg/dL (2.5-4.9); TOTAL IRON BINDING CAPACITY 164 ug/dL (250-450)
[2018-05-07] MEDS: LACTULOSE 20G/30ML UDC PO SCH ×3 (09:56→16:52)
[2018-05-07] MEDS: BACITRACIN 15GM TUBE TOP SCH ×2 (09:56→20:58)
[2018-05-07] MEDS: ASPIRIN 81MG TABLET PO SCH (09:57)
[2018-05-07] MEDS: ENOXAPARIN 40MG/0.4ML SYR SUBCUT SCH (09:57)
[2018-05-07] MEDS: DOCUSATE SODIUM 100MG CAPSULE PO SCH ×2 (09:57→16:52)
[2018-05-07] MEDS: DUTASTERIDE 0.5MG CAPSULE PO SCH (09:58)
[2018-05-07] MEDS: FAMOTIDINE 20MG TABLET PO SCH (09:58)
[2018-05-07] MEDS: CARVEDILOL 3.125 MG TABLET PO SCH ×2 (09:58→21:10)
[2018-05-07] MEDS: ALPRAZOLAM 0.25 MG TABLET PO PRN (09:58)
[2018-05-07] MEDS: LIDOCAINE 5% PATCH TOP SCH (10:01)
[2018-05-07 15:22] LABS: CLARITY URINE CLEAR (CLEAR); COLOR URINE DARK YELLOW (YELLOW); KETONES URINE 1+ (NEGATIVE); LEUKOCYTE ESTERASE URINE NEGATIVE (NEGATIVE); NITRITE URINE NEGATIVE (NEGATIVE); OCCULT BLOOD URINE NEGATIVE (NEGATIVE); PH URINE 5.5 (4.5-8.0); PROTEIN URINE 1+ (NEGATIVE); SPECIFIC GRAVITY URINE 1.027 (1.005-1.030)
[2018-05-07 20:00] VITALS: BP 131/71
[2018-05-07 20:12] LABS: PLATELET ESTIMATE NORMAL
[2018-05-07] MEDS: POLYETHYLENE GLYCOL 3350 (17GM) 1 DOSE PACK PO SCH (20:59)
[2018-05-07] MEDS: ATORVASTATIN CALCIUM 10MG TABLET PO SCH (20:59)
[2018-05-08] MEDS: ALPRAZOLAM 0.25 MG TABLET PO PRN (01:25)
[2018-05-08 01:33] VITALS: BP 130/62
[2018-05-08] MEDS: IPRATROPIUM/ALBUTEROL 0.5-3(2.5)MG/3ML NEB HHN SCH ×3 (02:17→22:15)
[2018-05-08] MEDS: TAMSULOSIN HCL 0.4MG SR CAPSULE PO SCH ×2 (06:25→17:48)
[2018-05-08] MEDS: OXYCODONE HCL/ACETAMINOPHEN 5/325MG TABLET PO PRN ×3 (06:26→23:04)
[2018-05-08] MEDS: DUTASTERIDE 0.5MG CAPSULE PO SCH (08:56)
[2018-05-08] MEDS: ASPIRIN 81MG TABLET PO SCH (08:56)
[2018-05-08] MEDS: FAMOTIDINE 20MG TABLET PO SCH (08:56)
[2018-05-08] MEDS: DOCUSATE SODIUM 100MG CAPSULE PO SCH ×2 (08:56→17:48)
[2018-05-08] MEDS: ENOXAPARIN 40MG/0.4ML SYR SUBCUT SCH (08:57)
[2018-05-08] MEDS: CARVEDILOL 3.125 MG TABLET PO SCH ×2 (08:57→21:52)
[2018-05-08] MEDS: LIDOCAINE 5% PATCH TOP SCH (08:57)
[2018-05-08] MEDS: BACITRACIN 15GM TUBE TOP SCH ×2 (09:00→21:52)
[2018-05-08 20:00] VITALS: BP 130/82
[2018-05-08] MEDS: POLYETHYLENE GLYCOL 3350 (17GM) 1 DOSE PACK PO SCH (21:00)
[2018-05-08] MEDS: ATORVASTATIN CALCIUM 10MG TABLET PO SCH (21:51)
[2018-05-08] MEDS: METHOCARBAMOL 500MG TABLET PO PRN (23:04)
[2018-05-09] MEDS: IPRATROPIUM/ALBUTEROL 0.5-3(2.5)MG/3ML NEB HHN SCH ×3 (00:08→20:49)
[2018-05-09] MEDS: TAMSULOSIN HCL 0.4MG SR CAPSULE PO SCH ×2 (06:07→17:12)
[2018-05-09 08:00] VITALS: BP 127/55
[2018-05-09] MEDS: ENOXAPARIN 40MG/0.4ML SYR SUBCUT SCH (08:47)
[2018-05-09] MEDS: CARVEDILOL 3.125 MG TABLET PO SCH ×2 (08:48→21:00)
[2018-05-09] MEDS: ASPIRIN 81MG TABLET PO SCH (08:48)
[2018-05-09] MEDS: FAMOTIDINE 20MG TABLET PO SCH (08:48)
[2018-05-09] MEDS: DUTASTERIDE 0.5MG CAPSULE PO SCH (08:48)
[2018-05-09] MEDS: OXYCODONE HCL/ACETAMINOPHEN 5/325MG TABLET PO PRN ×2 (08:48→21:49)
[2018-05-09] MEDS: BACITRACIN 15GM TUBE TOP SCH ×2 (08:49→21:21)
[2018-05-09] MEDS: LIDOCAINE 5% PATCH TOP SCH (08:49)
[2018-05-09] MEDS: DOCUSATE SODIUM 100MG CAPSULE PO SCH ×2 (09:53→17:08)
[2018-05-09 20:00] VITALS: BP 110/60
[2018-05-09] MEDS: POLYETHYLENE GLYCOL 3350 (17GM) 1 DOSE PACK PO SCH (21:00)
[2018-05-09] MEDS: ATORVASTATIN CALCIUM 10MG TABLET PO SCH (21:23)
[2018-05-09] MEDS: METHOCARBAMOL 500MG TABLET PO PRN (21:48)
[2018-05-10] MEDS: ALPRAZOLAM 0.25 MG TABLET PO PRN (00:47)
[2018-05-10] MEDS: IPRATROPIUM/ALBUTEROL 0.5-3(2.5)MG/3ML NEB HHN SCH ×4 (01:55→20:25)
[2018-05-10] MEDS: TAMSULOSIN HCL 0.4MG SR CAPSULE PO SCH ×2 (06:15→17:22)
[2018-05-10] MEDS: METHOCARBAMOL 500MG TABLET PO PRN ×2 (07:52→22:28)
[2018-05-10] MEDS: OXYCODONE HCL/ACETAMINOPHEN 5/325MG TABLET PO PRN ×3 (07:54→22:27)
[2018-05-10 08:27] VITALS: BP 131/65
[2018-05-10] MEDS: CARVEDILOL 3.125 MG TABLET PO SCH ×2 (09:00→21:00)
[2018-05-10] MEDS: ENOXAPARIN 40MG/0.4ML SYR SUBCUT SCH ×2 (09:17→09:20)
[2018-05-10] MEDS: FAMOTIDINE 20MG TABLET PO SCH (09:18)
[2018-05-10] MEDS: DOCUSATE SODIUM 100MG CAPSULE PO SCH ×2 (09:18→17:22)
[2018-05-10] MEDS: ASPIRIN 81MG TABLET PO SCH (09:18)
[2018-05-10] MEDS: DUTASTERIDE 0.5MG CAPSULE PO SCH (09:18)
[2018-05-10] MEDS: BACITRACIN 15GM TUBE TOP SCH ×2 (10:18→22:31)
[2018-05-10] MEDS: LIDOCAINE 5% PATCH TOP SCH (10:20)
[2018-05-10 20:00] VITALS: BP 127/66
[2018-05-10] MEDS: POLYETHYLENE GLYCOL 3350 (17GM) 1 DOSE PACK PO SCH (22:26)
[2018-05-10] MEDS: ATORVASTATIN CALCIUM 10MG TABLET PO SCH (22:26)
[2018-05-11] MEDS: CEPHALEXIN 250MG CAPSULE PO SCH ×5 (00:09→16:44)
[2018-05-11 00:29] LABS: BASOPHILS % 1.1 % (0.0-2.0); EOSINOPHILS % 1.5 % (0.0-5.0); HEMATOCRIT. 24.5 % (42.0-52.0); HEMOGLOBIN. 8.3 g/dL (14.0-18.0); LYMPHOCYTES % 23.8 % (20.0-50.0); MEAN CORPUSCULAR HEMOGLOBIN 29.6 pg (28.0-32.0); MEAN CORPUSCULAR VOLUME 87.1 fL (80.0-94.0); MEAN PLATELET VOLUME 7.2 fl (7.4-10.4); MONOCYTES % 13.4 % (2.0-8.0); NEUTROPHILS % 60.2 % (40.0-76.0); PLATELET 327 x1000/uL (130-400); RED BLOOD CELL COUNT 2.81 mill/uL (4.7-6.1); RED CELL DISTRIBUTION WIDTH 13.6 % (11.6-14.6)
[2018-05-11 00:36] LABS: CHLORIDE 107 mEq/L (98-107)
[2018-05-11] MEDS: IPRATROPIUM/ALBUTEROL 0.5-3(2.5)MG/3ML NEB HHN SCH ×4 (02:15→22:49)
[2018-05-11] MEDS: TAMSULOSIN HCL 0.4MG SR CAPSULE PO SCH ×2 (06:01→16:43)
[2018-05-11] MEDS: OXYCODONE HCL/ACETAMINOPHEN 5/325MG TABLET PO PRN ×5 (06:03→21:49)
[2018-05-11 08:00] VITALS: BP 137/65
[2018-05-11] MEDS: DOCUSATE SODIUM 100MG CAPSULE PO SCH ×2 (09:05→16:43)
[2018-05-11] MEDS: CARVEDILOL 3.125 MG TABLET PO SCH ×2 (09:05→20:52)
[2018-05-11] MEDS: DUTASTERIDE 0.5MG CAPSULE PO SCH (09:07)
[2018-05-11] MEDS: BACITRACIN 15GM TUBE TOP SCH ×2 (09:07→20:53)
[2018-05-11] MEDS: ASPIRIN 81MG TABLET PO SCH (09:07)
[2018-05-11] MEDS: FAMOTIDINE 20MG TABLET PO SCH (09:08)
[2018-05-11] MEDS: LIDOCAINE 5% PATCH TOP SCH (09:08)
[2018-05-11] MEDS: METHOCARBAMOL 500MG TABLET PO PRN ×2 (09:58→21:48)
[2018-05-11] MEDS ORDERED: ACETAMINOPHEN 325MG TABLET PO PRN (10:45)
[2018-05-11 14:22] LABS: 25-HYDROXY VITAMIN D3 8.1 ng/mL (.)
[2018-05-11 20:00] VITALS: BP 129/63
[2018-05-11] MEDS: ATORVASTATIN CALCIUM 10MG TABLET PO SCH (20:52)
[2018-05-11] MEDS: POLYETHYLENE GLYCOL 3350 (17GM) 1 DOSE PACK PO SCH (20:53)
[2018-05-11] MEDS ORDERED: ERGOCALCIFEROL 50000UNITS CAPSULE PO SCH (21:00)
[2018-05-12] MEDS: OXYCODONE HCL/ACETAMINOPHEN 5/325MG TABLET PO PRN ×3 (02:37→09:29)
[2018-05-12] MEDS: IPRATROPIUM/ALBUTEROL 0.5-3(2.5)MG/3ML NEB HHN SCH ×2 (04:05→07:10)
[2018-05-12] MEDS: TAMSULOSIN HCL 0.4MG SR CAPSULE PO SCH (05:51)
[2018-05-12] MEDS: METHOCARBAMOL 500MG TABLET PO PRN (05:51)
[2018-05-12 08:00] VITALS: BP 125/68
[2018-05-12 08:46] LABS: BASOPHILS % 1.2 % (0.0-2.0); EOSINOPHILS % 1.9 % (0.0-5.0); LYMPHOCYTES % 25.8 % (20.0-50.0); MEAN CORPUSCULAR HEMOGLOBIN 29.4 pg (28.0-32.0); MEAN CORPUSCULAR VOLUME 87.7 fL (80.0-94.0); MEAN PLATELET VOLUME 7.3 fl (7.4-10.4); MONOCYTES % 13.3 % (2.0-8.0); NEUTROPHILS % 57.8 % (40.0-76.0); PLATELET 388 x1000/uL (130-400); RED BLOOD CELL COUNT 3.36 mill/uL (4.7-6.1); RED CELL DISTRIBUTION WIDTH 13.9 % (11.6-14.6)
[2018-05-12 08:48] LABS: HEMATOCRIT. 29.5 % (42.0-52.0); HEMOGLOBIN. 9.9 g/dL (14.0-18.0)
[2018-05-12 09:07] LABS: CHLORIDE 105 mEq/L (98-107)
[2018-05-12] MEDS: DOCUSATE SODIUM 100MG CAPSULE PO SCH (09:29)
[2018-05-12] MEDS: ASPIRIN 81MG TABLET PO SCH (09:30)
[2018-05-12] MEDS: FAMOTIDINE 20MG TABLET PO SCH (09:30)
[2018-05-12] MEDS: CEPHALEXIN 250MG CAPSULE PO SCH (09:30)
[2018-05-12] MEDS: DUTASTERIDE 0.5MG CAPSULE PO SCH (09:30)
[2018-05-12] MEDS: LIDOCAINE 5% PATCH TOP SCH (09:31)
[2018-05-12] MEDS: CARVEDILOL 3.125 MG TABLET PO SCH (09:32)
[2018-05-12] MEDS: BACITRACIN 15GM TUBE TOP SCH (09:40)
[2018-05-12 11:25] VITALS: BP 122/68
== END 2018-05-12 13:12 | disposition home health service (06) | DRG 71 ==
PROVIDERS: ADMIT Physical Medicine & Rehabilitation Spinal Cord Injury Medicine; ATTEND Internal Medicine
DX: G93.49 Other encephalopathy (principal); D62 Acute posthemorrhagic anemia; E44.0 Moderate protein-calorie malnutrition; N17.9 Acute kidney failure, unspecified; J90 Pleural effusion, not elsewhere classified; L03.116 Cellulitis of left lower limb; L76.82 Other postprocedural complications of skin and subcutaneous tissue; Y83.8 Other surgical procedures as the cause of abnormal reaction of the patient, or of later complication, without mention of misadventure at the time of the procedure; Y92.230 Patient room in hospital as the place of occurrence of the external cause; G95.20 Unspecified cord compression; B19.20 Unspecified viral hepatitis C without hepatic coma; D63.8 Anemia in other chronic diseases classified elsewhere; D72.829 Elevated white blood cell count, unspecified; E11.9 Type 2 diabetes mellitus without complications; E78.00 Pure hypercholesterolemia, unspecified; E78.5 Hyperlipidemia, unspecified; G89.4 Chronic pain syndrome; I10 Essential (primary) hypertension; I25.10 Atherosclerotic heart disease of native coronary artery without angina pectoris; K21.9 Gastro-esophageal reflux disease without esophagitis; G93.0 Cerebral cysts; I44.7 Left bundle-branch block, unspecified; R53.81 Other malaise; R26.9 Unspecified abnormalities of gait and mobility; M54.5 Low back pain; M48.02 Spinal stenosis, cervical region; F06.31 Mood disorder due to known physiological condition with depressive features; E55.9 Vitamin D deficiency, unspecified; N40.0 Benign prostatic hyperplasia without lower urinary tract symptoms; R13.10 Dysphagia, unspecified; Z86.73 Personal history of transient ischemic attack (TIA), and cerebral infarction without residual deficits; Z87.891 Personal history of nicotine dependence; Z90.81 Acquired absence of spleen; Z95.0 Presence of cardiac pacemaker; Z95.1 Presence of aortocoronary bypass graft; Z79.899 Other long term (current) drug therapy; Z79.82 Long term (current) use of aspirin; Z82.49 Family history of ischemic heart disease and other diseases of the circulatory system; Z81.8 Family history of other mental and behavioral disorders; Z68.27 Body mass index [BMI] 27.0-27.9, adult
CPT/HCPCS: 36415; 80048; 82140; 82306; 82607; 82728; 82746; 83036; 83540; 83550; 83735; 84100; 84134; 84153; 84443; 92523; 92610; 93970; 94640; 97110; 97116; 97127; 97163; 97166; 97530; 97535; J1650; J7620; G0103

== ENCOUNTER 2018-05-18 22:17 | Inpatient (IN) | payer BC, MEDICARE ==
[~2018-05-18] VITALS: Ht 167.6 cm; Wt 74.8 kg
[~2018-05-18 22:17] MED LIST changes: -HYDR-4009 PO
[2018-05-19] MEDS ORDERED: ONDANSETRON HCL 4MG/2ML INJ IV STA (00:01)
[2018-05-19] MEDS ORDERED: MORPHINE SULFATE 4 MG/ML CPJ (NOT FOR IM USE) IV STA (00:01)
[2018-05-19 00:41] LABS: HEMATOCRIT. 30.3 % (42.0-52.0); MEAN CORPUSCULAR HEMOGLOBIN 28.5 pg (28.0-32.0); MEAN CORPUSCULAR VOLUME 86.5 fL (80.0-94.0); MEAN PLATELET VOLUME 7.1 fl (7.4-10.4); PLATELET 501 x1000/uL (130-400); RED CELL DISTRIBUTION WIDTH 14.3 % (11.6-14.6)
[2018-05-19 00:52] LABS: CHLORIDE 102 mEq/L (98-107)
[2018-05-19 01:02] LABS: INR 1.2; PROTHROMBIN TIME 12.1 sec (9.1-11.1)
[2018-05-19] MEDS ORDERED: FENTANYL CITRATE/PF 50MCG/ML 2ML VIAL IV ONE (01:45)
[2018-05-19 01:54] LABS: PLATELET ESTIMATE INCREASED
[2018-05-19] MEDS ORDERED: SODIUM CHLORIDE 0.9% 1,000 ML IV SCH (04:16)
[2018-05-19] MEDS ORDERED: ONDANSETRON HCL 4MG/2ML INJ IV PRN (07:30)
[2018-05-19] MEDS ORDERED: GUAIFENESIN 200MG/10ML SUGAR FREE UDC PO PRN (07:30)
[2018-05-19] MEDS ORDERED: CLONIDINE 0.1MG TABLET PO PRN (07:30)
[2018-05-19] MEDS ORDERED: ACETAMINOPHEN 325MG TABLET PO PRN (07:30)
[2018-05-19] MEDS ORDERED: LORAZEPAM 2MG/ML CPJ IV PRN (07:30)
[2018-05-19] MEDS ORDERED: HYDROCODONE/ACETAMINOPHEN 10/325MG TABLET PO PRN (07:30)
[2018-05-19] MEDS ORDERED: DOCUSATE SODIUM 100MG CAPSULE PO PRN (07:30)
[2018-05-19] MEDS ORDERED: IPRATROPIUM/ALBUTEROL 0.5-3(2.5)MG/3ML NEB INH PRN (07:30)
[2018-05-19] MEDS ORDERED: MAGNESIUM/ALUMINUM HYDROXIDE/SIMETHICONE 30ML UDC PO PRN (07:30)
[2018-05-19] MEDS ORDERED: HYDRALAZINE 20MG/ML VIAL IV PRN (07:30)
[2018-05-19] MEDS ORDERED: NA PHOS,M-B/NA PHOS,DI-BA ENEMA 118ML PR PRN (07:30)
[2018-05-19] MEDS ORDERED: DIPHENHYDRAMINE 50MG/ML VIAL IV PRN (07:30)
[2018-05-19] MEDS: HYDROMORPHONE HCL/PF 2MG/ML CPJ IV PRN ×4 (08:34→21:01)
[2018-05-19 09:41] LABS: CLARITY URINE CLEAR (CLEAR); COLOR URINE YELLOW (YELLOW); KETONES URINE TRACE (NEGATIVE); LEUKOCYTE ESTERASE URINE NEGATIVE (NEGATIVE); NITRITE URINE NEGATIVE (NEGATIVE); OCCULT BLOOD URINE NEGATIVE (NEGATIVE); PH URINE 5.5 (4.5-8.0); PROTEIN URINE TRACE (NEGATIVE); SPECIFIC GRAVITY URINE 1.021 (1.005-1.030)
[2018-05-19] MEDS ORDERED: HYDRALAZINE 10 MG in SODIUM CHLORIDE 0.9% 49.5 ML IV PRN (10:15)
[2018-05-19 10:30] VITALS: BP 122/80
[2018-05-19] MEDS: ASPIRIN 81MG EC TABLET PO SCH (11:36)
[2018-05-19] MEDS: ENOXAPARIN 40MG/0.4ML SYR SUBCUT SCH (11:38)
[2018-05-19 12:00] VITALS: BP 115/72
[2018-05-19] MEDS: CLOPIDOGREL 75MG TABLET PO SCH (13:04)
[2018-05-19] MEDS: SODIUM CHLORIDE 0.9% INJ 3ML FLUSH IVF SCH (13:07)
[2018-05-19 16:00] VITALS: BP 144/71
[2018-05-19] MEDS ORDERED: PHEN15CA MT (18:47)
[2018-05-19 20:00] VITALS: BP 138/68
[2018-05-20] VITALS: BP 132/75
[2018-05-20] MEDS: HYDROMORPHONE HCL/PF 2MG/ML CPJ IV PRN ×3 (00:34→08:20)
[2018-05-20] MEDS: SODIUM CHLORIDE 0.9% INJ 3ML FLUSH IVF SCH ×2 (00:34→05:09)
[2018-05-20 04:00] VITALS: BP 138/67
[2018-05-20 08:00] VITALS: BP_SYST 135; BP_SYST 145; BP_DIAS 71; BP_DIAS 78
[2018-05-20 08:04] LABS: HEMATOCRIT. 29.3 % (42.0-52.0); HEMOGLOBIN. 9.7 g/dL (14.0-18.0); MEAN CORPUSCULAR HEMOGLOBIN 28.6 pg (28.0-32.0); MEAN CORPUSCULAR VOLUME 86.7 fL (80.0-94.0); MEAN PLATELET VOLUME 7.2 fl (7.4-10.4); PLATELET 510 x1000/uL (130-400); RED BLOOD CELL COUNT 3.38 mill/uL (4.7-6.1); RED CELL DISTRIBUTION WIDTH 14.3 % (11.6-14.6)
[2018-05-20] MEDS: ENOXAPARIN 40MG/0.4ML SYR SUBCUT SCH (08:19)
[2018-05-20] MEDS: CLOPIDOGREL 75MG TABLET PO SCH (08:19)
[2018-05-20] MEDS: ASPIRIN 81MG EC TABLET PO SCH (08:19)
[2018-05-20 08:40] LABS: CHLORIDE 103 mEq/L (98-107)
[2018-05-20 09:54] VITALS: BP 136/62
[2018-05-21 09:41] LABS: PLATELET ESTIMATE INCREASED
== END 2018-05-20 10:35 | disposition home or self-care (01) | DRG 552 ==
LOC: ER 22:17 → 6EST 05-19 02:29 → EDBEDREQTM 05-19 02:32 → EDBEDREQ 05-19 02:32 → ENRESERV 05-19 08:45
PROVIDERS: ADMIT Internal Medicine; ATTEND Internal Medicine
DX: M51.37 Other intervertebral disc degeneration, lumbosacral region (principal); G89.29 Other chronic pain; E78.5 Hyperlipidemia, unspecified; I10 Essential (primary) hypertension; I25.10 Atherosclerotic heart disease of native coronary artery without angina pectoris; Z79.82 Long term (current) use of aspirin; Z95.1 Presence of aortocoronary bypass graft; Z90.49 Acquired absence of other specified parts of digestive tract
CPT/HCPCS: 36415; 71045; 72128; 72131; 96374; 96375; 99285; J1170; J1650; J2270; J2405; J3010; J7030

== ENCOUNTER 2018-06-06 09:56 | Inpatient (IN) | payer BC, MEDICARE ==
[~2018-06-06] VITALS: Ht 167.6 cm; Wt 80.7 kg
[~2018-06-06 09:56] MED LIST changes: +PHEN15CA MT
[2018-06-06] MEDS ORDERED: SODIUM CHLORIDE 0.9% 1,000 ML IV ONE ×2 (11:59→15:30)
[2018-06-06] MEDS ORDERED: ONDANSETRON HCL 4MG/2ML INJ IV STA (11:59)
[2018-06-06] MEDS ORDERED: MORPHINE SULFATE 4 MG/ML CPJ (NOT FOR IM USE) IV STA (11:59)
[2018-06-06 12:35] LABS: HEMOGLOBIN. 8.7 g/dL (14.0-18.0); MEAN CORPUSCULAR HEMOGLOBIN 27.4 pg (28.0-32.0); MEAN CORPUSCULAR VOLUME 82.5 fL (80.0-94.0); MEAN PLATELET VOLUME 7.2 fl (7.4-10.4); PLATELET 504 x1000/uL (130-400); RED BLOOD CELL COUNT 3.15 mill/uL (4.7-6.1); RED CELL DISTRIBUTION WIDTH 16.6 % (11.6-14.6)
[2018-06-06 12:42] LABS: CHLORIDE 92 mEq/L (98-107)
[2018-06-06 12:46] LABS: ETHANOL BLOOD < 10 mg/dL
[2018-06-06 12:54] LABS: INR 1.8; PROTHROMBIN TIME 18.2 sec (9.1-11.1)
[2018-06-06 13:39] LABS: PLATELET ESTIMATE INCREASED
[2018-06-06 15:20] LABS: CLARITY URINE CLOUDY (CLEAR); COLOR URINE DARK YELLOW (YELLOW); KETONES URINE NEGATIVE (NEGATIVE); LEUKOCYTE ESTERASE URINE TRACE (NEGATIVE); NITRITE URINE NEGATIVE (NEGATIVE); OCCULT BLOOD URINE NEGATIVE (NEGATIVE); PROTEIN URINE TRACE (NEGATIVE); SPECIFIC GRAVITY URINE 1.017 (1.005-1.030); UROBILINOGEN URINE 0.2 E.U./dL (0.2-1.0)
[2018-06-06] MEDS ORDERED: HYDROCODONE/ACETAMINOPHEN 10/325MG TABLET PO NR (15:45)
[2018-06-06 15:48] LABS: *AMPHETAMINES SCREEN URINE NEGATIVE (NEGATIVE); *BARBITURATES SCREEN URINE NEGATIVE (NEGATIVE); *BENZODIAZEPINES SCREEN URINE NEGATIVE (NEGATIVE); *COCAINE SCREEN URINE NEGATIVE (NEGATIVE); CANNABINOID URINE SCREEN NEGATIVE (NEGATIVE); OPIATES URINE SCREEN PRESUMTIVE POSITIVE (NEGATIVE); PHENCYCLIDINE URINE SCREEN NEGATIVE (NEGATIVE)
[2018-06-06 15:49] LABS: METHADONE URINE SCREEN NEGATIVE (NEGATIVE)
[2018-06-06] MEDS ORDERED: ACETAMINOPHEN 325MG TABLET PO PRN (19:00)
[2018-06-06] MEDS ORDERED: DIPHENHYDRAMINE 50MG/ML VIAL IV PRN (19:00)
[2018-06-06] MEDS ORDERED: CLONIDINE 0.1MG TABLET PO PRN (19:00)
[2018-06-06 20:30] VITALS: BP 92/51
[2018-06-06] MEDS: HYDROCODONE/ACETAMINOPHEN 10/325MG TABLET PO PRN (21:24)
[2018-06-06] MEDS: ZOLPIDEM TARTRATE 5MG TABLET PO PRN (21:24)
[2018-06-06] MEDS: DEXT 5%/0.45% NACL 1000ML 1,000 ML IV SCH (21:26)
[2018-06-07] VITALS: BP 91/52
[2018-06-07 04:00] VITALS: BP 96/54
[2018-06-07] MEDS: HYDROCODONE/ACETAMINOPHEN 10/325MG TABLET PO PRN ×2 (05:18→09:27)
[2018-06-07] MEDS: DEXT 5%/0.45% NACL 1000ML 1,000 ML IV SCH ×2 (06:30→16:54)
[2018-06-07 08:00] VITALS: BP 91/55
[2018-06-07] MEDS: METHOCARBAMOL 500MG TABLET PO PRN ×2 (09:27→21:39)
[2018-06-07 12:00] VITALS: BP 91/58
[2018-06-07] MEDS: OXYCODONE HCL/ACETAMINOPHEN 5/325MG TABLET PO PRN (12:53)
[2018-06-07 16:00] VITALS: BP 96/58
[2018-06-07 16:34] LABS: HEMATOCRIT. 26.2 % (42.0-52.0); HEMOGLOBIN. 8.7 g/dL (14.0-18.0); MEAN CORPUSCULAR HEMOGLOBIN 27.5 pg (28.0-32.0); MEAN PLATELET VOLUME 7.1 fl (7.4-10.4); PLATELET 487 x1000/uL (130-400); RED BLOOD CELL COUNT 3.15 mill/uL (4.7-6.1); RED CELL DISTRIBUTION WIDTH 16.8 % (11.6-14.6)
[2018-06-07 16:37] LABS: CHLORIDE 97 mEq/L (98-107)
[2018-06-07 16:41] LABS: PROTHROMBIN TIME 19.4 sec (9.1-11.1)
[2018-06-07 17:03] LABS: PLATELET ESTIMATE INCREASED
[2018-06-07 20:00] VITALS: BP 91/51
[2018-06-07] MEDS: MORPHINE SULFATE 30MG TABLET SR PO SCH (21:39)
[2018-06-07] MEDS: ZOLPIDEM TARTRATE 5MG TABLET PO PRN (23:08)
[2018-06-08] VITALS: BP 110/62
[2018-06-08 04:00] VITALS: BP 91/49
[2018-06-08] MEDS: METHOCARBAMOL 500MG TABLET PO PRN (06:09)
[2018-06-08] MEDS: OXYCODONE HCL/ACETAMINOPHEN 5/325MG TABLET PO PRN (06:09)
[2018-06-08 08:00] VITALS: BP 99/52
[2018-06-08] MEDS: MORPHINE SULFATE 30MG TABLET SR PO SCH ×2 (08:42→21:00)
[2018-06-08 12:00] VITALS: BP 93/50
[2018-06-08] MEDS: DEXT 5%/0.45% NACL 1000ML 1,000 ML IV SCH (15:14)
[2018-06-08 16:00] VITALS: BP 93/58
[2018-06-08 20:00] VITALS: BP 98/55
[2018-06-09] VITALS: BP 104/59
[2018-06-09] MEDS: OXYCODONE HCL/ACETAMINOPHEN 5/325MG TABLET PO PRN (00:34)
[2018-06-09] MEDS: METHOCARBAMOL 500MG TABLET PO PRN (01:00)
[2018-06-09 04:00] VITALS: BP 98/65
[2018-06-09 08:00] VITALS: BP 101/63
[2018-06-09] MEDS: MORPHINE SULFATE 30MG TABLET SR PO SCH ×2 (08:16→20:42)
[2018-06-09] MEDS: DEXT 5%/0.45% NACL 1000ML 1,000 ML IV SCH (08:16)
[2018-06-09 12:00] VITALS: BP 101/63
[2018-06-09 12:02] LABS: INR 2.4; PROTHROMBIN TIME 23.8 sec (9.1-11.1)
[2018-06-09 16:00] VITALS: BP 95/57
[2018-06-09 20:00] VITALS: BP 108/68
[2018-06-10] VITALS: BP 104/63
[2018-06-10 04:00] VITALS: BP 112/70
[2018-06-10] MEDS: METHOCARBAMOL 500MG TABLET PO PRN ×2 (06:30→17:17)
[2018-06-10 08:00] VITALS: BP 111/62
[2018-06-10] MEDS: MORPHINE SULFATE 30MG TABLET SR PO SCH (08:48)
[2018-06-10 12:00] VITALS: BP 99/62
[2018-06-10] MEDS ORDERED: BISACODYL 10MG SUPP PR PRN (12:00)
[2018-06-10] MEDS: DEXT 5%/0.9% NACL 1,000 ML IV SCH (12:57)
[2018-06-10 16:00] VITALS: BP 105/67
[2018-06-10] MEDS: DOCUSATE SODIUM 100MG CAPSULE PO SCH (17:17)
[2018-06-10 20:00] VITALS: BP 96/54
[2018-06-10] MEDS ORDERED: MORPHINE SULFATE 30MG TABLET SR PO SCH (21:00)
[2018-06-10] MEDS: MORPHINE SULFATE 15MG TABLET SR PO SCH (21:12)
[2018-06-11 00:35] VITALS: BP 99/59
[2018-06-11 04:00] VITALS: BP 113/65
[2018-06-11] MEDS: DEXT 5%/0.9% NACL 1,000 ML IV SCH (05:58)
[2018-06-11 08:00] VITALS: BP 98/58
[2018-06-11] MEDS: MORPHINE SULFATE 15MG TABLET SR PO SCH ×2 (09:00→21:13)
[2018-06-11] MEDS: DOCUSATE SODIUM 100MG CAPSULE PO SCH ×2 (09:04→17:20)
[2018-06-11 12:12] VITALS: BP 98/61
[2018-06-11 16:00] VITALS: BP 94/60
[2018-06-11 20:00] VITALS: BP 97/55
[2018-06-12] VITALS (20 sets, daily range): BP systolic 105–136; BP diastolic 60–81
[2018-06-12] MEDS: DEXT 5%/0.9% NACL 1,000 ML IV SCH (04:41)
[2018-06-12] MEDS: MORPHINE SULFATE 15MG TABLET SR PO SCH ×2 (08:55→20:38)
[2018-06-12] MEDS: DOCUSATE SODIUM 100MG CAPSULE PO SCH ×2 (08:55→17:54)
[2018-06-12 09:18] LABS: HEMATOCRIT 26.6 % (42.0-52.0); HEMOGLOBIN 8.7 g/dL (14.0-18.0)
[2018-06-12 09:27] LABS: INR 2.7; PROTHROMBIN TIME 27.1 sec (9.1-11.1)
[2018-06-12] MEDS ORDERED: HYDROMORPHONE HCL/PF 2MG/ML CPJ IV SCH (11:30)
[2018-06-12] MEDS ORDERED: FENTANYL CITRATE/PF 50MCG/ML 2ML VIAL IV SCH (15:30)
[2018-06-12] MEDS ORDERED: LIDOCAINE HCL 1% 20ML VIAL (Pyxis) INJ ONE (15:57)
[2018-06-12] MEDS ORDERED: SODIUM BICARBONATE 4% (2.4MEQ) 5ML VIAL IV ONE (15:57)
[2018-06-12] MEDS ORDERED: FENTANYL CITRATE/PF 50MCG/ML 2ML VIAL ONE (15:57)
[2018-06-12 17:48] LABS: HEMATOCRIT 26.6 % (42.0-52.0); HEMOGLOBIN 8.5 g/dL (14.0-18.0)
[2018-06-12 17:58] LABS: INR 2.2; PROTHROMBIN TIME 22.2 sec (9.1-11.1)
[2018-06-12 20:49] LABS: HEMATOCRIT. 26.3 % (42.0-52.0); HEMOGLOBIN. 8.5 g/dL (14.0-18.0); MEAN CORPUSCULAR VOLUME 83.8 fL (80.0-94.0); MEAN PLATELET VOLUME 7.4 fl (7.4-10.4); PLATELET 433 x1000/uL (130-400); RED BLOOD CELL COUNT 3.14 mill/uL (4.7-6.1); RED CELL DISTRIBUTION WIDTH 17.7 % (11.6-14.6)
[2018-06-12 21:34] LABS: PLATELET ESTIMATE INCREASED
[2018-06-13] VITALS: BP 120/69
[2018-06-13] MEDS: HYDROMORPHONE HCL 4MG TABLET PO PRN (00:21)
[2018-06-13] MEDS: DEXT 5%/0.9% NACL 1,000 ML IV SCH ×2 (00:21→19:25)
[2018-06-13 04:00] VITALS: BP 103/69
[2018-06-13 08:00] VITALS: BP 116/62
[2018-06-13] MEDS: DOCUSATE SODIUM 100MG CAPSULE PO SCH ×2 (08:35→17:50)
[2018-06-13] MEDS: MORPHINE SULFATE 15MG TABLET SR PO SCH ×2 (08:36→20:45)
[2018-06-13 12:00] VITALS: BP 97/62
[2018-06-13 16:00] VITALS: BP 103/73
[2018-06-13 20:00] VITALS: BP 107/60
[2018-06-14 00:06] VITALS: BP 102/65
[2018-06-14 04:00] VITALS: BP 105/57
[2018-06-14 08:10] VITALS: BP 98/53
[2018-06-14] MEDS: DOCUSATE SODIUM 100MG CAPSULE PO SCH ×2 (09:29→17:00)
[2018-06-14] MEDS: MORPHINE SULFATE 15MG TABLET SR PO SCH ×2 (09:30→21:35)
[2018-06-14 12:20] VITALS: BP 109/55
[2018-06-14] MEDS: DEXT 5%/0.9% NACL 1,000 ML IV SCH (15:51)
[2018-06-14 16:00] VITALS: BP 108/75
[2018-06-14 20:00] VITALS: BP 107/64
[2018-06-15 00:01] VITALS: BP 92/52
[2018-06-15 04:00] VITALS: BP 109/58
[2018-06-15] MEDS: HYDROMORPHONE HCL 4MG TABLET PO PRN ×2 (05:47→15:16)
[2018-06-15 08:00] VITALS: BP 94/58
[2018-06-15] MEDS: DOCUSATE SODIUM 100MG CAPSULE PO SCH ×2 (11:17→17:00)
[2018-06-15] MEDS: MORPHINE SULFATE 15MG TABLET SR PO SCH ×2 (11:18→20:01)
[2018-06-15] MEDS: DEXT 5%/0.9% NACL 1,000 ML IV SCH (11:20)
[2018-06-15 12:00] VITALS: BP 98/61
[2018-06-15 16:00] VITALS: BP 98/60
[2018-06-15 19:55] VITALS: BP 104/64
[2018-06-16] VITALS: BP 92/53
[2018-06-16 04:00] VITALS: BP 112/61
[2018-06-16 08:00] VITALS: BP 86/61
[2018-06-16] MEDS: DOCUSATE SODIUM 100MG CAPSULE PO SCH ×2 (10:13→17:00)
[2018-06-16] MEDS: DEXT 5%/0.9% NACL 1,000 ML IV SCH (10:40)
[2018-06-16 12:17] VITALS: BP 92/52
[2018-06-16] MEDS: METHOCARBAMOL 500MG TABLET PO PRN (14:48)
[2018-06-16] MEDS ORDERED: HYDROMORPHONE HCL/PF 2MG/ML CPJ IV ONE (16:15)
[2018-06-16] MEDS ORDERED: HYDROMORPHONE HCL 4MG TABLET PO PRN (16:15)
[2018-06-16 16:45] VITALS: BP 115/46
[2018-06-16] MEDS: ONDANSETRON HCL 4MG/2ML INJ IV PRN (17:11)
[2018-06-16 20:00] VITALS: BP 83/53
[2018-06-16] MEDS: MORPHINE SULFATE 15MG TABLET SR PO SCH (21:00)
[2018-06-17 02:53] VITALS: BP 88/55
[2018-06-17 04:00] VITALS: BP 90/56
[2018-06-17] MEDS: DEXT 5%/0.9% NACL 1,000 ML IV SCH (05:09)
[2018-06-17 08:00] VITALS: BP 95/52
[2018-06-17] MEDS: CHLORPROMAZINE HCL 25 MG TABLET PO PRN ×2 (09:40→15:26)
[2018-06-17] MEDS: DOCUSATE SODIUM 100MG CAPSULE PO SCH ×2 (09:40→18:00)
[2018-06-17] MEDS: MORPHINE SULFATE 15MG TABLET SR PO SCH (09:41)
[2018-06-17 12:00] VITALS: BP 86/43
[2018-06-17] MEDS: MORPHINE SULFATE 10MG/5ML ORAL SOLN UDC PO PRN (15:26)
[2018-06-17 16:00] VITALS: BP 81/51
[2018-06-17 20:00] VITALS: BP 70/42
[2018-06-18] VITALS (8 sets, daily range): BP systolic 65–145; BP diastolic 39–94
[2018-06-18] MEDS: DEXT 5%/0.9% NACL 1,000 ML IV SCH ×2 (00:15→11:39)
[2018-06-18] MEDS: DOCUSATE SODIUM 100MG CAPSULE PO SCH ×2 (09:00→17:00)
[2018-06-18] MEDS: MORPHINE SULFATE 10MG/5ML ORAL SOLN UDC PO PRN (16:52)
[2018-06-18] MEDS ORDERED: MORPHINE SULFATE 4 MG/ML CPJ (NOT FOR IM USE) IV PRN (19:16)
[2018-06-18] MEDS: ONDANSETRON HCL 4MG/2ML INJ IV PRN (22:31)
== END 2018-06-19 03:20 | disposition expired | DRG 435 ==
LOC: ER 09:56 → 7WST 15:18 → EDBEDREQ 15:24 → EDBEDREQTM 15:24 → ENRESERV 18:32
PROVIDERS: ADMIT Internal Medicine; ATTEND Internal Medicine
PROC: 0FB13ZX Excision of Right Lobe Liver, Percutaneous Approach, Diagnostic (ICD-10-PCS; principal; 2018-06-12)
PROC: 30233K1 Transfusion of Nonautologous Frozen Plasma into Peripheral Vein, Percutaneous Approach (ICD-10-PCS; 2018-06-12)
DX: C78.7 Secondary malignant neoplasm of liver and intrahepatic bile duct (principal); E43 Unspecified severe protein-calorie malnutrition; K83.1 Obstruction of bile duct; N17.0 Acute kidney failure with tubular necrosis; C25.9 Malignant neoplasm of pancreas, unspecified; D68.4 Acquired coagulation factor deficiency; I13.0 Hypertensive heart and chronic kidney disease with heart failure and stage 1 through stage 4 chronic kidney disease, or unspecified chronic kidney disease; R18.8 Other ascites; C77.8 Secondary and unspecified malignant neoplasm of lymph nodes of multiple regions; B18.2 Chronic viral hepatitis C; Z66 Do not resuscitate; D64.9 Anemia, unspecified; E78.5 Hyperlipidemia, unspecified; E86.0 Dehydration; I25.10 Atherosclerotic heart disease of native coronary artery without angina pectoris; M54.9 Dorsalgia, unspecified; R59.0 Localized enlarged lymph nodes; I50.9 Heart failure, unspecified; G89.29 Other chronic pain; K21.9 Gastro-esophageal reflux disease without esophagitis; K74.60 Unspecified cirrhosis of liver; N18.9 Chronic kidney disease, unspecified; N40.0 Benign prostatic hyperplasia without lower urinary tract symptoms; Z68.28 Body mass index [BMI] 28.0-28.9, adult; Z95.0 Presence of cardiac pacemaker; Z95.1 Presence of aortocoronary bypass graft; Z98.41 Cataract extraction status, right eye; Z79.02 Long term (current) use of antithrombotics/antiplatelets; Z79.82 Long term (current) use of aspirin; Z79.899 Other long term (current) drug therapy
CPT/HCPCS: 36415; 71045; 74176; 76942; 80305; 82105; 82378; 82962; 85014; 85018; 85049; 85384; 86301; 86850; 86900; 86927; 88307; 88313; 93005; 93970; 96360; 96361; 97163; 97166; 97530; 99285; J1170; J2270; J2405; J3010; J3490; J7030; J7042; J7050; P9017; Q0161